=== PATIENT | female | born 1940 | race Caucasian/White ===

== ENCOUNTER 2024-05-22 15:50 | Day surgery (SDC) | payer MEDICARE, OTHER, SELFPAY ==
[2024-05-22 12:05] VITALS: BMI 28.1
[2024-05-22 12:07] VITALS: BP 167/99
[2024-05-22 12:37] LABS: % Basophils 0.9 % (0-2); % Eosinophils 4.1 % (0-6); % Immature Granulocytes 0.3 % (0-0.5); % Lymphocytes 25.4 % (20.5-51.1); % Monocytes 8.3 % (1.7-9.3); Absolute Basophils 0.1 10^3/uL (0-0.2); Absolute Eosinophils 0.3 10^3/uL (0-0.7); Absolute Lymphocytes 1.8 10^3/uL (1.2-3.4); Absolute Monocytes 0.6 10^3/uL (0.1-0.6); Absolute Neutrophils 4.2 10^3/uL (1.4-6.5); Hematocrit 37.9 % (37.0-47.0); Hemoglobin 13.2 g/dL (12.0-16.0); Mean Corp Hgb Conc. 34.8 g/dL (33.0-37.0); Mean Corpuscular Hgb 28.9 pg (27.0-31.0); Mean Corpuscular Volume 82.9 fL (81.0-99.0); Mean Platelet Volume 9.7 fL (7.4-10.4); Nucleated Red Blood Cells % 0 %; Platelet Count 247 10^3/uL (130-400); Red Blood Cell Count 4.57 10^6/uL (4.20-5.40); Red Cell Dist. Width 13.4 % (11.5-14.5); White Blood Cell Count 6.9 10^3/uL (4.8-10.8)
[2024-05-22 12:47] LABS: APTT 28.8 Sec (23.4-35.0)
[2024-05-22 12:51] LABS: ALT (SGPT) 17 U/L (0-35); AST (SGOT) 26 U/L (14-36); Albumin 4.4 g/dl (3.5-5.0); Alkaline Phosphatase 95 U/L (38-126); Blood Urea Nitrogen 18 mg/dl (7-17); Calcium 9.4 mg/dl (8.4-10.2); Carbon Dioxide 26 mmol/L (22-30); Chloride 105 mmol/L (98-107); Estimated Creatinine Clearance 40 ml/min; Glucose 92 mg/dl (70-99); Potassium 4.1 mmol/L (3.5-5.1); Sodium 138 mmol/L (135-145); Total Bilirubin 0.5 mg/dl (0.2-1.3); Total Protein 7.6 g/dl (6.3-8.2); eGFR 56.25
--- NOTE | 2024-05-22 13:02 | ED.GENMED ---
History of Present Illness
General
Chief Complaint: Rectal Bleeding
Source: patient and physician
Time Seen by Provider: 05/22/24 12:11
History of Present Illness
History of Present Illness:
83-year-old female with past medical history of colitis/diverticulitis, hypertension, bronchial cancer presenting to the emergency department for evaluation at the request of her colorectal team for evaluation after patient has been experiencing
bloody stools for the last 8 days, last night into this morning there was more pronounced blood, seen in office this morning and sent to the ER with concern for severe proctitis and to be evaluated with further labs and CT imaging. Patient does
take a daily 81 mg aspirin but no other anticoagulants. She is denying any pain, fevers, nausea, vomiting, change in oral intake or any other concerns. She notes that she previously had surgical intervention with robotic sigmoidectomy due to past
GI related issues.
Past History
Past History
ED Past Medical History: Cancer, HTN, Hypothyroidism and Other (Diverticulitis, colitis)
ED Past Surgical History: Bowel resection, Gynecological, Orthopedic (Left knee surgery, laminectomy) and Other (Lungs tumor removal, umbilical hernia repair November 2017)
Social History
Tobacco: Former smoker
Alcohol: None
Drug: None
Personal:
Living: with family
Employment: Retired
Family History
Family History: Other (Noncontributory)
Review of Systems
Review of Systems
All Other Systems: ROS reviewed and negative except as documented in HPI and ROS
Phy Exam
Physical Exam
Physical Exam:
GENERAL: Alert , in no apparent distress
EYE: clear conjunctiva b/l
HEAD: NCAT
ENT: mmm.
CARDIAC: Regular rate and rhythm .
LUNGS: Clear breath sounds bilaterally, no acute respiratory distress, no wheezes/rales/rhonchi
ABDOMEN: Soft, mild left mid abdominal ttp, no r/g, no cvat
NEUROLOGICAL: Alert and oriented
SKIN: Warm and dry, skin intact.
MUSCULOSKELETAL: well perfused.
PSYCH: Normal and appropriate interaction.
Scores
Heart Failure Risk
Heart Failure Risk Score: Not Applicable
Heart Score for Chest Pain Patients
STEMI patient?: Not applicable
Withdrawal Assessment of Alcohol
Withdrawal Assessment Completed?: Not applicable
Course
Orders/Labs/Results
Orders:
Orders
05/22/24 Lunch
Clear Liquid
05/22/24 12:13
CT Abd/pelvis W Iv Cont Urgent
Comment:
Reason For Exam: lower abd pain, bleeding, hx colitis/divertic
05/22/24 12:23
Type+Screen Urgent
CRP [C-Reactive Protein] Urgent
Complete Blood Count/With Diff Urgent
Comprehensive Metabolic Panel Urgent
ESR [Erythrocyte Sed Rate] Urgent
PTT Urgent
Prothrombin Time Urgent
05/22/24 14:53
Colyte Peg Electrolyte Soln [Nulytely Solution] 4 liters PO ONCE ONE
05/22/24 20:00
H&H Q8H
05/23/24 Breakfast
NPO
Allow oral meds: No
Allow clear liquids: No
05/23/24 12:00
Surgical Procedure As Directed
Surgical Procedure: flexible sigmoidoscopy
Abnormal Lab Results
05/22/24
12:23
ESR 26 H mm/hour
(0-20)
BUN 18 H mg/dl
(7-17)
05/22/24 12:23
Vital Signs
Initial and Last Documented VS:
Initial Vital Signs
Temp Pulse Resp BP Pulse Ox
98.0 F 84 19 167/99 97
05/22/24 12:07 05/22/24 12:07 05/22/24 12:07 05/22/24 12:07 05/22/24 12:07
Last Documented Vital Signs
Temp Pulse Resp BP Pulse Ox
98.0 F 74 16 126/71 97
05/22/24 12:07 05/22/24 14:22 05/22/24 14:22 05/22/24 14:22 05/22/24 14:22
MDM/Problems Addressed
Differential Diagnosis Includes:
Proctitis, colitis, diverticulitis, anemia, infectious diarrhea
MDM/Problems Addressed:
83-year-old female presenting emergency department at the request of colorectal surgery team for evaluation of suspected severe proctitis. Patient with 8 days of bloody stools. She notes no other associated symptoms. Denies any fevers. She is
otherwise well-appearing. Abdomen was mildly tender within the left mid abdomen. Hemodynamically stable. Will check labs and CT at colorectal surgery's request. Disposition pending.
Chronic conditions affecting care: Other (diverticulitis/colitis)
*Radiology
Radiology exam reviewed: radiology read reviewed
*Pulse Oximetry
Patient hypoxic: no
*Critical Care Note
Total Time (30-74mins, 75-104mins- exclusive of procedures): Not Applicable
Data Reviewed
Review of Other/Old Records Reveals: Labs and Records
Source: patient, records and physician
Comment
Comment:
WBC 6.9
Hgb >13
Patient Management
Discussion with other providers: Hospitalist and Service Sprinkler Helper
Escalation/DeEscalation of care consider admission/obs:
Patient CT scan without any acute intra-abdominal findings. I discussed the case with colorectal surgery who is still recommending we bring the patient into the hospital with plans for bowel prep and flexible sigmoidoscopy tomorrow. Recommend
trending H&H. They will continue to see the patient in consultation. Hospitalist team was notified and accepts for continued evaluation and treatment.
ED Attending Note
-
Portions of this chart may have been created with voice recognition software.� Occasional wrong word or��sound alike� substitutions may have occurred due to the inherent limitations of voice recognition software.
Discharge Plan
Departure
Patient Disposition: Admit
Date of Disposition: 05/22/24
Time of Disposition: 14:45
Presentation/result/management discussed w/ accepting MD/DO: Hospitalist
Discharge Problem:
GI bleeding
Prescriptions:
No Action
levothyroxine 25 MCG tablet
25 mcg PO Q48H
enalapril maleate 5 mg Tablet
5 mg PO Q48H
cholecalciferol (vitamin D3) [Vitamin D3] 25 mcg (1,000 unit) Tablet,Chewable
25 mcg PO DAILY
cranberry extract 50 mg Tablet,Chewable
50 mg PO DAILY
Referrals:
Levi Savage MD [Family Provider] -
Interventions
Interventions:
*Risk Screen - Suicide Last Done: 05/22/24 12:07
*General Assessment Last Done: 05/22/24 12:07
*Neglect/Abuse Screening Last Done: 05/22/24 12:07
ED- Fall Risk Assessment Last Done: 05/22/24 12:26
*ED COVID-19 Vaccine History Last Done: 05/22/24 12:16
CT-Nannnp-Vlepygnvzv Assessment Last Done: 05/22/24 12:25
ED- Cardiac Assessment Last Done: 05/22/24 12:25
ED- Pulmonary Assessment Last Done: 05/22/24 12:25
Discharge Date and Time
Print Language: SLOVAK
[2024-05-22 14:09] LABS: Erythrocyte Sed Rate 26 mm/hour (0-20)
[2024-05-22 14:22] VITALS: BP 126/71
--- NOTE | 2024-05-22 14:52 | HPS.HSE ---
Addendum entered and electronically signed by John Menon MD 05/22/24 15:35:
I saw and examined the patient.
The STEREO OPERATOR's note was reviewed and I agree with the note.
Comment:
82 female past medical history of hypertension hypothyroidism, colitis status post tumor resection in 2020 was presented with bright red blood per rectum from colorectal office. Patient denies abdominal pain. Denies nausea or vomiting. Denies any
change in diet. Denies lightheaded and dizziness.
General: Comfortable and Conversant; No Fever or Chills
HEENT: NormoCephalic, Anicteric, Moist mucous membranes, PERRLA, [place] Conjunctivae and No Ptosis
Respiratory: Clear; No Wheezes, Rales or Rhonchi
Cardiac: S1/S2 and Regular Rhythm; No Murmur, Rub, Gallop or Peripheral Edema
GI: Soft, Non Tender, Non Distended, Normal Bowel Sounds and No Hepatosplenomegaly
Musculoskeletal: No Clubbing, No Cyanosis and No Edema
Skin: Warm and Dry; No Rash
Neuro: AO x 3, No Motor Deficits, Nonfocal/grossly intact, Cranial Nerves Intact and No Sensory Deficits; No Slurred Speech, Facial Droop or Tremors
Psych: Calm
A/P
Bright red blood per the rectum likely secondary to lower GI bleed secondary to anal bleeding versus suspected proctitis
Primary potential
Hypothyroidism
History of colitis status post resection
Plan
Diet orders per surgery
Plan for flex sig in the morning
Hemoglobin has been stable
Bowel prep ordered.
DVT prophylaxis SCDs in the setting of bleeding.
Discussed with patient daughter at bedside in detail
I spent a total of 80 minutes with the patient or on the floor. More than 50% of this time involved counseling and coordination of care.
Original Note:
Family Physician
-
Family Physician: Levi Savage MD
Chief Complaint
-
Bloody stools x 8 days
History of Present Illness
83-year-old female complaining of bloody stools with brown formed and some left lower quadrant abdominal pain over the last 8 days with being more pronounced today. She was seen in the office this morning by colorectal and sent to ER for
evaluation. She denies fever, chills, nausea, vomiting, chest pain, palpitations, shortness of breath, cough. She is past medical history of colitis/diverticulitis status post robotic sigmoidectomy, HTN, hypothyroidism, bronchial cancer with
lung tumor removal, former smoker.
Medical History
Past Medical History
Past Medical History: Reports Other
Additional Past Medical History:
Colitis/diverticulitis status post robotic sigmoidectomy
HTN
Hypothyroidism
bronchial cancer with lung tumor removal
former smoker
Past Surgical History: Reports Other
Additional Past Surgical History:
Bowel resection robotic sigmoidectomy due to diverticulitis
Lung tumor removal secondary bronchial cancer
Umbilical hernia repair November 2017
Left knee surgery
Laminectomy
Social History
Tobacco: Former Smoker
Alcohol: None
Drug: None
Personal:
Living: With Family
Employment: Retired
Family History
Family History: Other (Sister history of colitis mother CVA father age 86 from a fall family history of colon cancer)
Allergies / Home Medications
Allergies reflects when Allergies were last updated in [facility] [employer].
Home Medications with original date entered in [facility] [facility] [employer]
Allergy/Medication List:
Allergies
Allergy/AdvReac Type Severity Reaction Status Date / Time
amoxicillin Allergy diarrhea Verified 01/01/22 10:46
morphine Allergy Swelling @ Verified 01/01/22 10:46
IV site
Penicillins Allergy Rash Verified 01/01/22 10:46
Home Medications
levothyroxine 25 mcg tablet 25 mcg PO Q48H Thyroid 07/30/16
cholecalciferol (vitamin D3) 25 mcg (1,000 unit) chewable tablet (Vitamin D3) 25 mcg PO DAILY 05/22/24
cranberry extract 50 mg chewable tablet 50 mg PO DAILY 05/22/24
enalapril maleate 5 mg tablet 5 mg PO Q48H 05/22/24
Review of Systems
-
History Source: Patient
A 12 point ROS was completed and negative except as noted: Yes
Constitutional: Denies Fever or Chills
EENT: Denies Sore Throat or Runny Nose
Respiratory: Denies Cough or Trouble Breathing
Cardiac: Denies Chest Pain or Diaphoresis
Abdomen/GI: Reports Abdominal Pain (llq) and Bloody Stools (bright red); Denies Nausea, Vomiting or Diarrhea
: Denies Dysuria, Frequency, Flank Pain, Incontinence, Difficulty Voiding or Urgency
Musculoskeletal: Denies Joint Pain, Joint Swelling or Edema
Skin: Denies Itching or Rash
Neurological: Denies Dizzy or Headache
Endocrine: Reports No Symptoms
Hematologic/Lymphatic: Reports No Symptoms
Psych: Reports Calm
Physical Exam
Vital Signs
Vital Signs
Temp Pulse Resp BP Pulse Ox
98.0 F 74 16 126/71 97
05/22/24 12:07 05/22/24 14:22 05/22/24 14:22 05/22/24 14:22 05/22/24 14:22
Physical Exam
General: Comfortable and Conversant; No Fever or Chills
HEENT: NormoCephalic, Anicteric, Moist mucous membranes, PERRLA, [place] Conjunctivae and No Ptosis
Respiratory: Clear; No Wheezes, Rales or Rhonchi
Cardiac: S1/S2 and Regular Rhythm; No Murmur, Rub, Gallop or Peripheral Edema
Breast: Deferred by me
GI: Soft, Non Tender, Non Distended, Normal Bowel Sounds and No Hepatosplenomegaly
Rectal: Deferred by Provider
Genito-urinary: Deferred by me
Musculoskeletal: No Clubbing, No Cyanosis and No Edema
Skin: Warm and Dry; No Rash
Neuro: AO x 3, No Motor Deficits, Nonfocal/grossly intact, Cranial Nerves Intact and No Sensory Deficits; No Slurred Speech, Facial Droop or Tremors
Psych: Calm
Laboratory Results
-
05/22/24 12:23
05/22/24 12:23
Laboratory Results
PT 14.0 Sec (11.4-14.6) 05/22/24 12:
INR 1.10 05/22/24 12:23
APTT 28.8 Sec (23.4-35.0) 05/22/24 12:23
Total Bilirubin 0.5 mg/dl (0.2-1.3) 05/22/24 12:23
AST 26 U/L (14-36) 05/22/24 12:23
ALT 17 U/L (0-35) 05/22/24 12:23
Alkaline Phosphatase 95 U/L (38-126) 05/22/24 12:23
Impression/Plan
-
Impression/plan:
Observation MedSurg
#Acute proctitis with bloody stools
Hgb stable 13.2
-Clear liquids then n.p.o. after midnight
-IV NSS
-Bowel prep this evening go milad
-For flex sig tomorrow by Dr. Nation
consult colo rectal
CT abdomen pelvis with IV contrast: No evidence for acute process in the abdomen or pelvis. Colonic diverticulosis. Rectosigmoid anastomosis
#Hx colitis/diverticulitis
#History status post sigmoidectomy Dr. Nation
#HTN�benign
BP 126/71
Continue enalapril 5 mg every 48 H
#Hypothyroidism
Continue levothyroxine 25 mcg every 48 H
#Bronchial cancer with lung tumor removal
Former smoker
DVT prophylaxis
SCDs
Full code
--- NOTE | 2024-05-22 14:55 | CON.CRS ---
Consultation
-
Date/Time Consultation Requested: 05/22/2024, 14:30
Date/Time Consultation Performed: 05/22/2024, 15:04
Requesting Provider: Kyaw Randhawa PA-C
Performing Provider: Billy Sarabia MD
Reason for Consultation: rectal bleeding
Medical History
-
Chief Complaint: rectal bleeding
History of Present Illness:
83-year-old female, known patient of Dr. Nation's status post a robotic sigmoid resection for diverticulitis on January 01, 2022.� The patient surgery went well and her last appointment with Dr. Nation was on 01/18/2022 and at that time had no issues.
Bloody diarrhea in September 2019 she was admitted with a CT scan consistent with ischemic colitis in the distribution of the inferior mesenteric artery.� In February 2018 a CAT scan revealed severe colitis involving descending and sigmoid colon.� A
follow-up MRI in October 2021 reveals patent mesenteric arteries.
Her last colonoscopy was in 2017 which showed diverticulosis in the sigmoid colon.� She is due in 2027.
Currently the patient states that she has had severe rectal bleeding that started about 8 days ago.� It is bright red in nature and occurs mostly with bowel movements.� She denies pain.� She denies prolapsing tissue.� She denies any leakage.� She
has tried Preparation H but it has not helped.� She has also tried Tucks pads.� Typical her bowel movements are normal but more lately have been incomplete in nature and she goes about 3-4 times a day.� She denies a family history of rectal or colon
cancer.� She is not any blood thinners.
Past Medical History
Past Medical History: HTN, Hypothyroidism and Other (h/o colitis, h/o diverticulitis)
Past Surgical History: Other (Left total knee DOS 10/2016 , Bunionectomy , Thyroidectomy , carciniod tumor removal , lumbar lami, spinal stenosis , ear surgery x7 , tubal ligation , 12/07/2017 umbilical hernia repair , R shoulder replacement
09/01/2021, Robotic Sigmoid Resection 12/2021, excision of back cyst (lambour) 10/2023, RKA)
Social History
Tobacco: Former Smoker
Alcohol: None
Personal:
Family History
Family History: Reviewed & Not Pertinent
Allergies / Home Medications
Allergy/AdvReac Type Severity Reaction Status Date / Time
amoxicillin Allergy diarrhea Verified 01/01/22 10:46
morphine Allergy Swelling @ Verified 01/01/22 10:46
IV site
Penicillins Allergy Rash Verified 01/01/22 10:46
�Medication �Instructions �Recorded �Confirmed �Type
levothyroxine 25 mcg tablet 25 mcg PO Q48H Thyroid 07/30/16 05/22/24 History
cholecalciferol (vitamin D3) 25 25 mcg PO DAILY 05/22/24 05/22/24 History
mcg (1,000 unit) chewable tablet
(Vitamin D3)
cranberry extract 50 mg chewable 50 mg PO DAILY 05/22/24 05/22/24 History
tablet
enalapril maleate 5 mg tablet 5 mg PO Q48H 05/22/24 05/22/24 History
Review of Systems
-
History Source: Patient
Abdomen/GI: Bloody Stools
: Bleeding
A 10 point review of systems was completed, and was negative except as per HPI.
Physical Exam
Vital Signs
Temp 98.0 F 05/22/24 12:07
Pulse 74 05/22/24 14:22
Resp Rate 16 05/22/24 14:22
Blood pressure 126/71 05/22/24 14:22
SaO2 97 05/22/24 14:22
05/21/24 05/22/24 05/23/24
06:59 06:59 06:59
Actual Weight 69.5 kg
Body Mass Index (BMI) 28.1
Lab Results / Allergies
05/22/24 12:23
WBC 6.9 10^3/uL (4.8-10.8) 05/22/24 12:23
Hgb 13.2 g/dL (12.0-16.0) 05/22/24 12:23
Hct 37.9 % (37.0-47.0) 05/22/24 12:23
Plt Count 247 10^3/uL (130-400) 05/22/24 12:23
Abs Immat Gran (auto) 0.0 10^3/uL (0-0.05) 05/22/24 12:23
Neutrophils % 61.0 % (42.2-75.2) 05/22/24 12:23
Allergy/AdvReac Type Severity Reaction Status Date / Time
amoxicillin Allergy diarrhea Verified 01/01/22 10:46
morphine Allergy Swelling @ Verified 01/01/22 10:46
IV site
Penicillins Allergy Rash Verified 01/01/22 10:46
Physical Exam
General: Well Developed, Well Nourished and No Apparent Distress
GI: Soft, Non Tender and Non Distended
Rectal: Other (A lubricated regular anoscope was gently inserted into the anus and the obturator was removed. The anus and distal rectum were examined. This procedure was repeated to examine all four quadrants of the anus and distal rectum. Severe
proctitis noted with moderate anterior anal bleeding noted.)
Neuro: AO x 3
Data Reviewed
-
CT Scan: Image Personally Visualized and interpreted, Report Reviewed by me and Discussed with Patient
Labs: Labs Reviewed by me, Discussed with Physician and Discussed with Patient
Old Records: Reviewed
Assessment / Plan
-
Assessment: 83yo female with anal bleeding noted on anoscopy exam in the office, Hgb [address] A/P negative for acute process
Plan:
-Will plan for flexible sigmoidoscopy tomorrow afternoon with Dr. Sarabia. She has been added to the schedule.
-Clears now, NPO at midnight.
-Bowel prep this afternoon.
-IVFs when NPO.
-Discussed above with patient and who are in agreement.
[2024-05-22 16:00] VITALS: BP 121/85
[2024-05-22 18:15] VITALS: BMI 27.2
[2024-05-22 18:56] VITALS: BP 136/76
[2024-05-22] MEDS: NULYTELY SOLUTION 4 LITERS PO (19:29)
[2024-05-22 20:13] LABS: Hematocrit 40.1 % (37.0-47.0); Hemoglobin 13.9 g/dL (12.0-16.0)
--- NOTE | 2024-05-22 20:40 | PTCARENOTE ---
pt noted to be tremoring, b/l arms and hands. Pt states she does have anxiety at times and takes 0.25 mg of xanax occasionally. HORIZONTAL RESAW OPERATOR made aware as well as colorectal. Orders in for one time dose of 0.25 mg xanax, med given.
[2024-05-22] MEDS: XANAX 0.25 MG PO (21:34)
--- NOTE | 2024-05-22 22:42 | PTCARENOTE ---
pt drank about half of the prep and started vomiting. Dr. Nation made aware and instructed pt to stop prep now, and will give enemas tomorrow.
[2024-05-22 23:17] VITALS: BP 146/94
[2024-05-23 07:35] VITALS: BP 102/70
[2024-05-23 09:01] LABS: % Basophils 0.8 % (0-2); % Eosinophils 5.3 % (0-6); % Immature Granulocytes 0.3 % (0-0.5); % Lymphocytes 22.3 % (20.5-51.1); % Monocytes 8.1 % (1.7-9.3); % Neutrophils 63.2 % (42.2-75.2); Absolute Basophils 0.1 10^3/uL (0-0.2); Absolute Eosinophils 0.3 10^3/uL (0-0.7); Absolute Lymphocytes 1.4 10^3/uL (1.2-3.4); Absolute Monocytes 0.5 10^3/uL (0.1-0.6); Absolute Neutrophils 4.1 10^3/uL (1.4-6.5); Hemoglobin 13.1 g/dL (12.0-16.0); Mean Corp Hgb Conc. 34.5 g/dL (33.0-37.0); Mean Corpuscular Hgb 28.7 pg (27.0-31.0); Mean Corpuscular Volume 83.2 fL (81.0-99.0); Mean Platelet Volume 9.8 fL (7.4-10.4); Nucleated Red Blood Cells % 0 %; Platelet Count 231 10^3/uL (130-400); Red Blood Cell Count 4.57 10^6/uL (4.20-5.40); Red Cell Dist. Width 13.4 % (11.5-14.5); White Blood Cell Count 6.4 10^3/uL (4.8-10.8)
[2024-05-23 10:39] LABS: Blood Urea Nitrogen 15 mg/dl (7-17); Calcium 9.2 mg/dl (8.4-10.2); Carbon Dioxide 22 mmol/L (22-30); Chloride 106 mmol/L (98-107); Estimated Creatinine Clearance 49 ml/min; Glucose 96 mg/dl (70-99); Potassium 4.3 mmol/L (3.5-5.1); Sodium 137 mmol/L (135-145); eGFR > 60.00
--- NOTE | 2024-05-23 11:33 | W.PN.HOSP.TC ---
Today's Communication/Plan
-
CRS recs
Assessment / Plan
Assessment / Plan
#Bright red blood per the rectum likely secondary to lower GI bleed secondary to anal bleeding versus suspected proctitis
#Hx colitis/diverticulitis
#History status post sigmoidectomy Dr. Nation
CT abdomen pelvis with IV contrast: No evidence for acute process in the abdomen or pelvis. Colonic diverticulosis. Rectosigmoid anastomosis
Hemoglobin remained stable.
Finish half the prep. May require enema.
Colonoscopy vs. flex sig based on prep
Will defer to colorectal surgery
#HTN�benign
Continue enalapril 5 mg every 48 H
#Hypothyroidism
Continue levothyroxine 25 mcg every 48 H
#Bronchial cancer with lung tumor removal
Former smoker
DVT prophylaxis
SCDs
Full code
Anticipated Discharge: Within 24 hours
Subjective/Interval History
-
Date of Service: May 23, 2024
States of severe nausea and vomiting with a GoLytely prep
Finished half the prep
Objective Data
-
Labs:
Laboratory Results
05/23/24
08:06
WBC 6.4
Hgb 13.1
Hct 38.0
Plt Count 231
Sodium 137
Potassium 4.3
Chloride 106
Carbon Dioxide 22
BUN 15
Creatinine 0.8
Glucose 96
Calcium 9.2
Vital Signs:
Vital Signs
Temp Pulse Resp BP Pulse Ox
98.1 F 68 17 102/70 94
05/23/24 07:35 05/23/24 07:35 05/23/24 07:35 05/23/24 07:35 05/23/24 07:35
I&O
05/22/24 05/23/24 05/24/24
06:59 06:59 06:59
Intake Total 120 / 120
Balance 120 / 120
--- NOTE | 2024-05-23 11:37 | CM ---
senior clinical study manager reviewed patient's chart and met with patient and patient was admitted under OBS, MICHEL letter provided to patient at 11am, patient lives with her spouse in a 1 story home with 5 steps to enter, patient is independent with adl's and
ambulation, no dme.
Pharmacy; [facility]
PCP: Dr. Savage
Plan; Home when stable, no needs.
[2024-05-23 14:05] VITALS: BP 108/66
--- NOTE | 2024-05-23 14:08 | W.PN.UPDATE ---
Update Note
Progress Note Update
Flexible sigmoidoscopy complete. Suboptimal prep. Distal 1/3rd of rectum with severe proctitis and ulceration. Likely was source of blood. Will resume diet. GI consult for recommendations.
[2024-05-23 14:09] VITALS: BP 108/66; BP_SYST 18
[2024-05-23 14:15] VITALS: BP 108/66
--- NOTE | 2024-05-23 15:29 | CON.GI ---
Medical History
Chief Complaint / HPI
Chief Complaint: Rectal bleeding
History of Present Illness:
Patient is a 83-year-old female with past medical history of diverticulitis s/probotic sigmoidectomy who presented with anorectal bleeding and left lower quadrant abdominal pain. She was noted to have anal bleeding on anoscopy exam in the
colorectal team office. She denies any recent fever, chills, nausea, vomiting. She mentions an urgency to go the bathroom and crampy abdominal pain but does not give a history of diarrhea.
She has a history bronchial carcinoid tumor (1998); tumor was resected at that time and she has been asymptomatic since.
Past Medical History
Past Medical History: Cancer, HTN, Hypothyroidism and Other (arthritis, sigmoid diverticulitis)
Past Surgical History: Bowel Resection (resection of sigmoid + mid to proximal rectum (2021)) and Orthopedic ((Left knee surgery, laminectomy)
Social History
Tobacco: Former Smoker
Alcohol: None
Drug: None
Personal:
Living: With Family
Employment: Retired
Family History
Family History: Other (Patient suspects a history of U/C in sister but is unsure)
Allergies / Home Medications
Allergy/AdvReac Type Severity Reaction Status Date / Time
amoxicillin Allergy diarrhea Verified 01/01/22 10:46
morphine Allergy Swelling @ Verified 01/01/22 10:46
IV site
Penicillins Allergy Rash Verified 01/01/22 10:46
�Medication �Instructions �Recorded
levothyroxine 25 mcg tablet 25 mcg PO Q48H Thyroid 07/30/16
alprazolam 0.25 mg tablet (Xanax) 0.25 mg PO HS PRN anxiety 05/22/24
cholecalciferol (vitamin D3) 25 25 mcg PO DAILY Supplement 05/22/24
mcg (1,000 unit) chewable tablet
(Vitamin D3)
cranberry extract 50 mg chewable 50 mg PO DAILY Supplement 05/22/24
tablet
enalapril maleate 5 mg tablet 5 mg PO Q48H Blood Pressure 05/22/24
Review of Systems
-
History Source: Patient
All other systems: A 12 pt ROS was Negative except as stated above in HPI
Vital Signs
Temp Pulse Resp BP Pulse Ox
97.6 F 75 19 108/66 98
05/23/24 14:09 05/23/24 14:15 05/23/24 14:15 05/23/24 14:15 05/23/24 14:09
Physical Exam
Exam
General: Well Developed and No Apparent Distress
HEENT: Moist Mucous Membranes
Respiratory: Clear
Cardiac: S1/S2 and Regular Rhythm
GI: Soft, Non Distended and Tender (mild LLQ tenderness)
Skin: Warm and Dry
Neuro: Awake, Alert, Oriented and AO x 3
Psych: Calm
Results
WBC 6.4 10^3/uL (4.8-10.8) 05/23/24 08:06
Hgb 13.1 g/dL (12.0-16.0) 05/23/24 08:06
Hct 38.0 % (37.0-47.0) 05/23/24 08:06
MCV 83.2 fL (81.0-99.0) 05/23/24 08:06
Plt Count 231 10^3/uL (130-400) 05/23/24 08:06
Absolute Neuts (auto) 4.1 10^3/uL (1.4-6.5) 05/23/24 08:06
PT 14.0 Sec (11.4-14.6) 05/22/24 12:23
INR 1.10 05/22/24 12:23
APTT 28.8 Sec (23.4-35.0) 05/22/24 12:23
Sodium 137 mmol/L (135-145) 05/23/24 08:06
Potassium 4.3 mmol/L (3.5-5.1) 05/23/24 08:06
Chloride 106 mmol/L (98-107) 05/23/24 08:06
Carbon Dioxide 22 mmol/L (22-30) 05/23/24 08:06
BUN 15 mg/dl (7-17) 05/23/24 08:06
Creatinine 0.8 mg/dL (0.6-1.0) 05/23/24 08:06
Calcium 9.2 mg/dl (8.4-10.2) 05/23/24 08:06
Total Bilirubin 0.5 mg/dl (0.2-1.3) 05/22/24 12:23
AST 26 U/L (14-36) 05/22/24 12:23
ALT 17 U/L (0-35) 05/22/24 12:23
Alkaline Phosphatase 95 U/L (38-126) 05/22/24 12:23
Diagnostic Image Results (05/22/24):
CT evidence for an acute process in the abdomen or pelvis. Colonic diverticulosis. Rectosigmoid anastomosis.
Prior GI Procedures:
EGD (06/30/18) :
Gastric antral mucosa with marked chronic inactive gastritis, positive for H. pylori
Colonoscopy (01/04/22) :
Colon, sigmoid, resection:
-Segment of colon with diverticulitis and adhesions.
-Two benign lymph nodes.
Rectum, excision:
-Segment of rectum with diverticulitis and adhesions
Assessment / Plan
-
Patient is a 83-year-old female with past medical history of diverticulitis s/p robotic sigmoidectomy who presented with anorectal bleeding from 8 days ago. Patient went into OR today for flexible sigmoidoscopy. Distal 1/3rd of rectum with severe
proctitis and ulceration. Biopsies taken.
# proctitis: ischemic vs infectious vs inflammatory
Plan:
- Stool tests
- Inflammatory markers
- Regular diet
- Continue to monitor h/h
- Await path results for definite diagnosis
- Appreciate colorectal team
-
-
Thank you for consultation and allowing me to participate in the patient's care. 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
[2024-05-23 15:49] VITALS: BP 138/82
[2024-05-23 23:48] VITALS: BP 131/69
[2024-05-24 08:11] VITALS: BP 124/91
--- NOTE | 2024-05-24 09:05 | W.PN.CRS1 ---
Today's Communication / Plan
-
no surgery indicated
GI work up
will s/o, please contact if further issues arise
Assessment/Plan
-
Assessment: Distal 1/3rd of rectum with severe proctitis and ulceration
Plan:
- No surgery indicated at this time
- Appreciate GI consultation: miralax and fiber started, awaiting pathology, stool studies/inflammatory markers
- Dispo per primary service
- Will sign off, please contact us if further issues arise
Subjective Data
Procedure
05/23- flexible sigmoidoscopy with Dr. Sarabia
Subjective Data
Date of Service: May 24, 2024
Patient states her bleeding has completely stopped. She had a non bloody bowel movement. She has no other complaints.
Objective Data
-
Vital Signs
Temp Pulse Resp BP Pulse Ox
98.3 F 92 18 131/69 97
05/23/24 23:48 05/23/24 23:48 05/23/24 23:48 05/23/24 23:48 05/23/24 23:48
Intake & Output
05/23/24 05/24/24 05/25/24
06:59 06:59 06:59
Intake Total 120 / 120 540 / 540
Balance 120 / 120 540 / 540
Intake:
Oral fluids 120 / 120 540 / 540
Other:
Number of approximated SMALL 4
amounts of urine
Number of approximated MODERATE 3
amounts of urine
How many times incontinent 2
MODERATE amount urine
Lab Results
05/23/24 08:06
05/23/24 08:06
Physical Exam
-
General: No Acute Distress and AOx3
Abdomen: Soft, Non Distended and Non Tender
Skin: Warm and Dry
[2024-05-24] MEDS: VASOTEC 5 MG PO (09:58)
[2024-05-24] MEDS: MIRALAX 17 GRAMS PO (09:58)
[2024-05-24] MEDS: FIBERCON 625 MG PO (10:03)
--- NOTE | 2024-05-24 10:32 | W.PN.GI.CBS2 ---
Today's Communication / Plan
-
Start Rowasa enemas, okay for d/c. Outpatient f/u with GI.
Assessment / Plan
-
Ella is a pleasant 83-year-old female with past medical history of recurrent sigmoid diverticulitis status post sigmoidectomy with Dr. Nation in 2021 who was admitted to the hospital following a flex sig on 05/23 demonstrating proctitis and rectal
ulcer, admitted following procedure for GI consultation.
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
-ESR 26
-BUN normalized
-infectious stool studies neg; fecal calprotectin pending
-recal bx returned with chronically moderately active proctitis
-recommend starting rowasa enemas and reassessing response to therapy
-will arrange for patient to follow-up in GI office following discharge
-GI will sign off, okay for d/c today from a GI perspective
Subjective
Subjective
Date of Service: May 24, 2024
Patient seen in follow-up, no overnight events. No episodes of bleeding. She feels well enough to go home today.
Objective
Data Reviewed
Laboratory Data:
Laboratory Results
05/23/24 08:06
05/23/24 08:06
Laboratory Results
PT 14.0 Sec (11.4-14.6) 05/22/24 12:23
INR 1.10 05/22/24 12:23
APTT 28.8 Sec (23.4-35.0) 05/22/24 12:23
Total Bilirubin 0.5 mg/dl (0.2-1.3) 05/22/24 12:23
AST 26 U/L (14-36) 05/22/24 12:23
ALT 17 U/L (0-35) 05/22/24 12:23
Alkaline Phosphatase 95 U/L (38-126) 05/22/24 12:23
Vital Signs and I&O:
Vital Signs
Temp Pulse Resp BP Pulse Ox
98.3 F 72 18 124/91 95
05/24/24 08:11 05/24/24 08:11 05/24/24 08:11 05/24/24 08:11 05/24/24 08:11
I&O
05/23/24 05/24/24 05/25/24
06:59 06:59 06:59
Intake Total 120 / 120 540 / 540
Balance 120 / 120 540 / 540
Physical Exam
Physical Exam
HEENT: Anicteric and Moist mucous membranes
GI: Soft, Non Distended, Non Tender and Normal Bowel Sounds
--- NOTE | 2024-05-24 11:36 | W.PN.HOSP.TC ---
Addendum entered and electronically signed by John Menon MD 05/24/24 13:29:
Discussed case with gastroenterology. Patient to be discharged home with mesalamine enema. Outpatient GI follow-up.
More than 30 minutes spent in discharge including
Final examination of the patient
Summarizing hospital stay
Instructions for continuing care to all relevant caregivers
Preparation of discharge records, prescriptions, and referral forms
Total time spent (in minutes): 58
Original Note:
Today's Communication/Plan
-
Dispo possibly home later today pending GI recs
Assessment / Plan
Assessment / Plan
#Bright red blood per the rectum likely secondary to lower GI bleed secondary to anal bleeding versus suspected proctitis
#Hx colitis/diverticulitis
#History status post sigmoidectomy Dr. Nation
CT abdomen pelvis with IV contrast: No evidence for acute process in the abdomen or pelvis. Colonic diverticulosis. Rectosigmoid anastomosis
Hemoglobin remained stable.
Finish half the prep. May require enema.
Status post flex sig with suboptimal prep. Distal one third affected with severe proctitis and ulceration. Likely the source of bleeding.
Rectum biopsy results with chronic moderately active proctitis. Negative for granulomas and dysplasia.
Tolerating diet and no abdominal pain.
GI consulted will await further recs
#HTN�benign
Continue enalapril 5 mg every 48 H
#Hypothyroidism
Continue levothyroxine 25 mcg every 48 H
#Bronchial cancer with lung tumor removal
Former smoker
DVT prophylaxis
SCDs
Full code
Dispo possibly home later today pending GI recs
Anticipated Discharge: Today
Subjective/Interval History
-
Date of Service: May 24, 2024
Denies abd pain or nause or vomiting
Objective Data
-
Vital Signs:
Vital Signs
Temp Pulse Resp BP Pulse Ox
98.3 F 72 18 124/91 95
05/24/24 08:11 05/24/24 08:11 05/24/24 08:11 05/24/24 08:11 05/24/24 08:11
I&O
05/23/24 05/24/24 05/25/24
06:59 06:59 06:59
Intake Total 120 / 120 540 / 540
Balance 120 / 120 540 / 540
Physical Exam
-
General: Well Developed and No Apparent Distress
HEENT: Normocephalic, Atraumatic and Moist Mucous Membranes
Respiratory: Clear to Auscultation
Cardiac: Regular Rhythm and S1/S2; Negative Murmur, Rub or Gallop
GI: Soft, Nontender, Nondistended and Normal Bowel Sounds; Negative Organomegaly
Rectal: Deferred by Provider
Musculoskeletal: No Clubbing, No Cyanosis and No Edema
Skin: Negative Rash
Neuro: Awake, AO x 3 and Nonfocal/Grossly Intact
Psych: Calm
--- NOTE | 2024-05-24 12:07 | W.PN.UPDATE ---
Update Note
Progress Note Update
path with ulcerative proctitis reviewed with patient will send rowasa enema to pharmacy. Educated on disease process and medication. Given contact info for return for follow up.
--- NOTE | 2024-05-24 13:11 | W.DCSUMMARY ---
Discharge Summary
Discharge Data
Date of Admission: 05/22/24
Date of Discharge: 05/24/24
-
Pending Results: No
Hospital Course
83 female past medical history of diverticulitis/colitis status post sigmoidectomy who was presented from surgery office with bright red blood per the rectum. Underwent CT abdomen pelvis with IV contrast which showed no evidence of active process
in the abdomen or pelvis. Colonic diverticulosis. Rectosigmoid anastomosis. Patient underwent flex sig by Dr. Sarabia which showed suboptimal prep. Distal one third affected with severe proctitis and ulceration. Likely the source of bleeding.
Rectum biopsy results with chronic moderately active proctitis. Negative for granulomas and dysplasia. GI recommended patient to be started on mesalamine enema Rx was sent by GI team to the pharmacy nightly. Patient understands to follow-up
outpatient with gastroenterology. Patient was tolerating diet. Hemoglobin remained stable. Patient be discharged home.
Discharge Plan
-
Patient Disposition: Home (Routine Discharge)
Discharge Diagnosis/Procedures: Ulcerative proctitis
Condition: Fair
Diet: As tolerated and Regular
Activity: As tolerated
Driving Restrictions: As prior to admission
Referrals:
Billy Sarabia MD [Active] -
Levi Savage MD [Family Provider] - in less than 1 week
Sheila Gonzalez DO [Active] - None (call to schedule follow up for new ulcerative proctitis )
Prescriptions:
New
mesalamine [Rowasa] 4 gram/60 mL enema
4 g KS HS Qty: 1680 0RF
Continued
levothyroxine 25 MCG tablet
25 mcg PO Q48H
enalapril maleate 5 mg Tablet
5 mg PO Q48H
cholecalciferol (vitamin D3) [Vitamin D3] 25 mcg (1,000 unit) Tablet,Chewable
25 mcg PO DAILY
cranberry extract 50 mg Tablet,Chewable
50 mg PO DAILY
alprazolam [Xanax] 0.25 mg Tablet
0.25 mg PO HS PRN (Reason: anxiety)
Discharge Orders:
Discharge Patient (As Directed); Ordered 05/24/24
Ordered By: John Menon
Discharge Date and Time
Print Language: THAI
--- NOTE | 2024-05-24 14:45 | CM ---
Met with patient and spouse at bedside
Plan: discharge to home today; no services needed; will provide transport home
[2024-05-24 15:11] VITALS: BP 121/74
== END 2024-05-24 15:30 | disposition home or self-care (01) ==
LOC: PACU 15:50
PROVIDERS: Clinical Nurse Specialist Family Health; Nurse Practitioner Adult Health; Physician Assistant; Physician Assistant Medical; ATTENDING PHYSICIAN Hospitalist; CONSULT PHYSICIAN Internal Medicine; EMERGENCY PHYSICIAN Emergency Medicine; FAMILY PHYSICIAN Family Medicine
DX: K62.89 Other specified diseases of anus and rectum (principal); K62.5 Hemorrhage of anus and rectum
CPT/HCPCS: 45331; 88305; 74177; 80048; 80053; 83993; 85014; 85018; 85025; 85610; 85652; 85730; 86140; 86850; 86900; 86901; 87045; 87046; 87324; 87328; 87329; 87427; 87449; 89055; 99285; Q9967

== ENCOUNTER → 2024-08-20 06:36 | Day surgery (SDC) | payer MEDICARE, OTHER, SELFPAY | LOC: GI 06:36 | PROVIDERS: ATTENDING PHYSICIAN Internal Medicine; FAMILY PHYSICIAN Family Medicine | DX: K51.211 Ulcerative (chronic) proctitis with rectal bleeding (principal); D12.4 Benign neoplasm of descending colon; K55.20 Angiodysplasia of colon without hemorrhage; K63.89 Other specified diseases of intestine; D12.8 Benign neoplasm of rectum; K64.8 Other hemorrhoids | CPT/HCPCS: 45380; 88305 ==

== ENCOUNTER → 2024-12-04 08:09 | Outpatient (REF) | payer MEDICARE, OTHER, SELFPAY | LOC: HWRAD 08:09 | PROVIDERS: ATTENDING PHYSICIAN Physician Assistant Surgical; FAMILY PHYSICIAN Family Medicine | DX: M25.512 Pain in left shoulder (principal) | CPT/HCPCS: 73200 ==

== ENCOUNTER 2024-12-25 06:01 | Inpatient (IN) | payer MEDICARE, OTHER, SELFPAY ==
[2024-12-06 10:54] LABS: Hematocrit 36.9 % (37.0-47.0); Hemoglobin 12.2 g/dL (12.0-16.0); Mean Corp Hgb Conc. 33.1 g/dL (33.0-37.0); Mean Corpuscular Hgb 29.3 pg (27.0-31.0); Mean Corpuscular Volume 88.5 fL (81.0-99.0); Platelet Count 209 10^3/uL (130-400); Red Blood Cell Count 4.17 10^6/uL (4.20-5.40); Red Cell Dist. Width 13.7 % (11.5-14.5)
[2024-12-06 11:09] LABS: Glycohemoglobin (HgbA1c) 5.9 % (4.0-5.6)
[2024-12-06 11:33] LABS: ALT (SGPT) 18 U/L (0-35); AST (SGOT) 21 U/L (14-36); Albumin 4.2 g/dl (3.5-5.0); Alkaline Phosphatase 77 U/L (38-126); Blood Urea Nitrogen 19 mg/dl (7-17); Calcium 9.2 mg/dl (8.4-10.2); Carbon Dioxide 28 mmol/L (22-30); Chloride 101 mmol/L (98-107); Glucose 108 mg/dl (70-99); Potassium 4.3 mmol/L (3.5-5.1); Sodium 138 mmol/L (135-145); Total Bilirubin 0.6 mg/dl (0.2-1.3); Total Protein 7.1 g/dl (6.3-8.2); eGFR > 60.00
[2024-12-06 14:06] VITALS: BMI 26.7
[2024-12-06 15:35] VITALS: BMI 26.7
--- NOTE | 2024-12-07 15:21 | PTCARENOTE ---
Abnormal EKG on 12/06/24. Dr. Mccormick aware. Dr. Mccormick ordered a cardiac clearance prior to surgery.
[2024-12-25] VITALS (16 sets, daily range): BP systolic 108–147; BP diastolic 65–96; PULSE 69; O2SAT 97; BMI 26.7
[2024-12-25] MEDS: CELEBREX 200 MG PO (06:32)
[2024-12-25] MEDS: TYLENOL 1000 MG PO (06:32)
[2024-12-25] MEDS: NORMOSOL-R/PLASMALYTE-A 1000 IV ×2 (06:45→13:57)
[2024-12-25] MEDS: EMEND 40 MG PO (07:01)
--- NOTE | 2024-12-25 11:15 | PTCARENOTE ---
Received patient from PACU around 1105 via bed in stable condition. Denies pain. Dressing to left shoulder CDI. Sling to LUE in place. +sensation +pulses LUE. Patient oriented to room. Call hernadez in reach.
[2024-12-25] MEDS: XANAX PO (11:59)
[2024-12-25 12:09] LABS: Glucose - Point of Care 117 mg/dl (70-99)
[2024-12-25] MEDS: ANCEF 5 IV ×2 (16:20→23:51)
[2024-12-25] MEDS: ASPIRIN 325 MG PO (17:30)
[2024-12-25 18:12] LABS: Glucose - Point of Care 185 mg/dl (70-99)
[2024-12-25] MEDS: XANAX 0.25 MG PO (20:01)
[2024-12-25] MEDS: NEURONTIN 300 MG PO (22:03)
[2024-12-25] MEDS: PEPCID 20 MG PO (22:03)
[2024-12-25] MEDS: BACTROBAN 2% OINTMENT 1 APPLIC NASAL (22:03)
[2024-12-26 03:15] VITALS: BP 125/77
[2024-12-26 07:15] VITALS: BP 125/74
[2024-12-26] MEDS: MOBIC 15 MG PO (08:43)
[2024-12-26] MEDS: ASPIRIN 325 MG PO (08:44)
[2024-12-26] MEDS: XANAX PO ×2 (08:44→10:10)
[2024-12-26] MEDS: BACTROBAN 2% OINTMENT 1 APPLIC NASAL (08:45)
--- NOTE | 2024-12-26 08:57 | W.PN.ORTHO ---
Today's Communication / Plan
-
D/c today since clinically stable, did well w/ OT.
Assessment
.
Distal Motor Intact: Yes
Dressing:
Clean, dry and intact.
Assessment:
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
- s/p R Reverse TSA, 08/2021, by Dr Masters and L TKA, 2016, by Dr Jeffery
DVT prophylaxis - ASA, b/l venous foot pumps
HTN - + parameters - BPs overall stable
Chronic kidney disease stage 3 per records - Meloxicam ONLY for breakthrough pain as needed
NIDDM with neuropathy, diet controlled, A1c 5.9 - BS readings overall stable
- Continue diabetic, carb controlled diet
- Gabapentin offered for neuropathy but kindly declined
GERD - continue Pepcid HS
HLD
Bifascicular block
History of H pylori
Ischemic colitis 09/2019
Colon polyps
Recurrent diverticulitis, status post sigmoidectomy 2021
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
Irritable bowel syndrome
Cholelithiasis, asymptomatic
Hemorrhoids
Balance difficulties
Lumbar degenerative disc disease.
Bronchial carcinoma, 1998, status post excision
Thyroid nodule, status post left partial thyroidectomy
Post-surgical hypothyroidism
Tinea pedis, on Ketoconazole
Osteopenia
Anxiety
Hearing impairment bilaterally
MRSA positive nasal swab 08/19/2021; 2 negative screens since diagnosis
History of remote tobacco abuse
Plan
.
Surgery / Date: L Reverse TSA w/ Dr Masters 12/25/24
DVT Prophylaxis: Aspirin
Activity:
Out of bed.
PT/OT
Discharge Plan: Home
Subjective
.
.:
Patient resting comfortably in her chair.
L shoulder pain tolerable w/ minimal pain meds.
Denies any new significant complaints.
Eager for potential d/c today.
Vital Signs and Labs
.
Vital Signs and Labs:
Lab Results
12/06/24 09:54
12/06/24 09:54
Temp Pulse Resp BP Pulse Ox
97.4 F 69 16 125/74 96
12/26/24 07:15 12/26/24 07:15 12/26/24 07:15 12/26/24 07:15 12/26/24 07:15
Non-invasive Hgb result: 11.4
Physical Exam
-
HEENT: No pallor, cyanosis, or jaundice. Throat clear.
NECK: Supple. No JVD.
RESPIRATORY: Lungs clear to auscultation.
CVS: S1, S2 normal. RRR.�
ABDOMEN: Soft, non-tender. No distension.
EXTREMITIES: + LUE sling. 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 Able to wiggle fingers b/l. Strength equal, no calf pain with palpation/dorsiflexion. Calves soft.
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 No focal deficits. 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
[2024-12-26 09:03] VITALS: BP 114/76; PULSE 68; O2SAT 95
[2024-12-26] MEDS: TYLENOL #3 1 TABLET PO (09:04)
--- NOTE | 2024-12-26 09:27 | W.DS.TRANS ---
DC Summary - [employer]
-
Discharge Instructions:
Sleep Apnea Risk Low
Discharge Diagnosis/Procedures L shoulder OA w/ rotator cuff arthropathy s/p L
Reverse TSA w/ Dr Masters 12/25/24
Diet Diabetic, Carb Controlled
Activity As tolerated
Additional Activity Non-weightbearing left upper extremity
Driving Restrictions Not until seen by your Dr
Bathing Restrictions OK to Shower
Wound Care Leave dressing on until seen by surgeon's office
for follow-up in 2 weeks.
Instructions:
Stand-Alone Forms: Total Shoulder Replacement D/C
Changes to Home Medications: Yes
Discharge Medications:
DC Medications w/original date entered in [facility]
levothyroxine 25 mcg tablet 25 mcg PO Q48H Thyroid 07/30/16
alprazolam 0.25 mg tablet (Xanax) 0.25 mg PO HS PRN anxiety 05/22/24
cholecalciferol (vitamin D3) 25 mcg (1,000 unit) chewable tablet (Vitamin D3) 25 mcg PO DAILY Supplement 05/22/24
clobetasol 0.05 % lotion 1 applic topical DAILY seborrhea scalp 12/05/24
ketoconazole 2 % topical cream 1 applic topical DAILY athletes foot 12/05/24
trolamine salicylate 10 % lotion 1 applic topical DAILY PRN knee pain 12/05/24
mupirocin 2 % topical ointment 1 applic intranasal BID #1 tube 12/06/24
Saccharomyces boulardii 250 mg capsule (Florastor) 250 mg PO DAILY #7 caps 12/26/24
acetaminophen 300 mg-codeine 30 mg tablet 1 - 2 tab PO Q6H PRN moderate-severe pain #30 tabs 12/26/24
acetaminophen 325 mg tablet (Tylenol) 650 mg (2 x 325 mg) PO Q6H PRN mild pain #30 tabs 12/26/24
aspirin 325 mg tablet 325 mg PO DAILY #30 tabs 12/26/24
cefadroxil 500 mg capsule 500 mg PO DAILY #7 caps 12/26/24
docusate sodium 100 mg capsule 100 mg PO BID #30 caps 12/26/24
enalapril maleate 5 mg tablet 5 mg PO DAILY Blood Pressure #1 tab 12/26/24
famotidine 20 mg tablet 20 mg PO HS #30 tabs 12/26/24
meloxicam 15 mg tablet 15 mg PO DAILY PRN breakthrough pain #14 tabs 12/26/24
ondansetron HCl 4 mg tablet 4 mg PO Q6H PRN nausea and vomiting #30 tabs 12/26/24
sennosides 8.6 mg tablet (Sendy-oumou) 17.2 mg (2 x 8.6 mg) PO BID #30 tabs 12/26/24
Home Medication Changes
Saccharomyces boulardii 250 mg capsule (Florastor) 250 mg PO DAILY #7 caps 12/26/24
acetaminophen 300 mg-codeine 30 mg tablet 1 - 2 tab PO Q6H PRN moderate-severe pain #30 tabs 12/26/24
acetaminophen 325 mg tablet (Tylenol) 650 mg (2 x 325 mg) PO Q6H PRN mild pain #30 tabs 12/26/24
aspirin 325 mg tablet 325 mg PO DAILY #30 tabs 12/26/24
cefadroxil 500 mg capsule 500 mg PO DAILY #7 caps 12/26/24
docusate sodium 100 mg capsule 100 mg PO BID #30 caps 12/26/24
famotidine 20 mg tablet 20 mg PO HS #30 tabs 12/26/24
meloxicam 15 mg tablet 15 mg PO DAILY PRN breakthrough pain #14 tabs 12/26/24
ondansetron HCl 4 mg tablet 4 mg PO Q6H PRN nausea and vomiting #30 tabs 12/26/24
sennosides 8.6 mg tablet (Sendy-oumou) 17.2 mg (2 x 8.6 mg) PO BID #30 tabs 12/26/24
Pending Results: No
--- NOTE | 2024-12-26 10:26 | CM ---
Met with pt at bedside
Pt reports she lives with her in a ranch style home; 6 steps to enter
Independent, active, drives
DME - rolling walker, single point cane, raised toilet seat
SNF/HH - denies past hx
Has ride at d/c
PCP - Levi Savage
Pharm - [facility]
Given IMM
Pt to f/u with physician - outpatient rehab needs will be determined at visit
Plan - home with family care
[2024-12-26 11:22] VITALS: BP 117/66
--- NOTE | 2024-12-26 11:46 | PTCARENOTE ---
Discharge order written. Instructions reviewed with patient. No further questions. IV site removed. Volunteer escort by wheelchair to 's car waiting at [facility].
== END 2024-12-26 11:59 | disposition home or self-care (01) | DRG 483 ==
LOC: 2 SOUTH 06:01
PROVIDERS: ADMITTING PHYSICIAN Specialist; FAMILY PHYSICIAN Family Medicine
PROC: 0RRK00Z Replacement of Left Shoulder Joint with Reverse Ball and Socket Synthetic Substitute, Open Approach (ICD-10-PCS; 2024-12-25)
DX: M19.012 Primary osteoarthritis, left shoulder (principal); I45.2 Bifascicular block; I12.9 Hypertensive chronic kidney disease with stage 1 through stage 4 chronic kidney disease, or unspecified chronic kidney disease; N18.30 Chronic kidney disease, stage 3 unspecified; E11.22 Type 2 diabetes mellitus with diabetic chronic kidney disease; E78.5 Hyperlipidemia, unspecified; K21.9 Gastro-esophageal reflux disease without esophagitis; Z79.84 Long term (current) use of oral hypoglycemic drugs
CPT/HCPCS: 36415; 73020; 80053; 82962; 83036; 85027; 87070; 93005; 97110; 97167; 97535; C1713; C1776

== ENCOUNTER 2025-03-09 18:53 | Inpatient (IN) | payer MEDICARE, OTHER, SELFPAY ==
[2025-03-09] VITALS (9 sets, daily range): BP systolic 117–150; BP diastolic 66–91; BMI 26.9; BMI 26.8
[2025-03-09 13:58] LABS: % Basophils 0.4 % (0-2); % Eosinophils 2.4 % (0-6); % Immature Granulocytes 0.4 % (0-0.5); % Lymphocytes 17.2 % (20.5-51.1); % Monocytes 8.7 % (1.7-9.3); % Neutrophils 70.9 % (42.2-75.2); Absolute Eosinophils 0.2 10^3/uL (0-0.7); Absolute Lymphocytes 1.3 10^3/uL (1.2-3.4); Absolute Monocytes 0.7 10^3/uL (0.1-0.6); Absolute Neutrophils 5.4 10^3/uL (1.4-6.5); Hematocrit 35.8 % (37.0-47.0); Hemoglobin 12.1 g/dL (12.0-16.0); Mean Corp Hgb Conc. 33.8 g/dL (33.0-37.0); Mean Corpuscular Hgb 28.7 pg (27.0-31.0); Mean Platelet Volume 9.5 fL (7.4-10.4); Nucleated Red Blood Cells % 0 %; Platelet Count 212 10^3/uL (130-400); Red Blood Cell Count 4.21 10^6/uL (4.20-5.40); Red Cell Dist. Width 13.2 % (11.5-14.5); White Blood Cell Count 7.6 10^3/uL (4.8-10.8)
[2025-03-09 14:02] LABS: INR 1.11; PT 14.6 Sec (11.4-14.6)
[2025-03-09 14:03] LABS: APTT 27.3 Sec (23.4-35.0)
[2025-03-09 14:15] LABS: NT-proBNP 100 pg/ml; Troponin I < 0.012 ng/ml
[2025-03-09 14:43] LABS: ALT (SGPT) 14 U/L (0-35); AST (SGOT) 17 U/L (14-36); Alkaline Phosphatase 70 U/L (38-126); Blood Urea Nitrogen 15 mg/dl (7-17); Calcium 9.4 mg/dl (8.4-10.2); Carbon Dioxide 27 mmol/L (22-30); Chloride 103 mmol/L (98-107); Glucose 112 mg/dl (70-99); Potassium 4.8 mmol/L (3.5-5.1); Sodium 137 mmol/L (135-145); Total Bilirubin 0.5 mg/dl (0.2-1.3); Total Protein 7.3 g/dl (6.3-8.2); eGFR > 60.00
--- NOTE | 2025-03-09 15:27 | ED.GENMED ---
History of Present Illness
General
Chief Complaint: Cold/Flu/URI Symptoms
Time Seen by Provider: 03/09/25 15:26
History of Present Illness
History of Present Illness:
TIME OF INITIAL ENCOUNTER: 3:30 PM
HPI: The patient presents with some oropharyngeal discomfort and shortness of breath. She states that when she goes up to steps she becomes very short of breath. She has no chest pain or tightness. No changes in weight, no edema. No significant
cough.
EXAM:
GENERAL: Well appearing in no distress
HEENT: Moist oral mucosa, widely patent posterior oropharynx, no uvular edema, no erythema, no exudate
CARDIOVASCULAR: No murmurs, normal heart rate, regular rhythm, No chest wall tenderness
PULMONARY: No respiratory distress, breath sounds are clear and equal
ABDOMEN: Soft with no peritoneal signs, no tenderness
NEUROLOGIC: Excellent strength all extremities, no coordination deficits
PSYCHIATRIC: Appropriate mental status, normal insight and judgement
EXTREMITIES: Nontender, no edema, moves all extremities equally
SKIN: No rash, no lesions
NUMBER AND COMPLEXITY OF PROBLEMS ADDRESSED AT THE ENCOUNTER
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
� Acute Exacerbation and/or Progression of Chronic Illness: This is an acute problem
� Differential Diagnosis includes: PE, pneumonia, ACS unlikely, CHF
AMOUNT AND/OR COMPLEXITY OF DATA TO BE REVIEWED AND ANALYZED
� I performed an independent evaluation of and my interpretation is:
EKG: Sinus 80, left axis deviation, bifascicular block
CT: CTA by my read shows bilateral PE without heart strain
X-rays: Chest x-ray shows no acute abnormality
Laboratory Studies: White count and hemoglobin are normal, chemistries unremarkable, troponin less than 0.012, BNP is only 100
Other:
� Review of other/old records: The patient had left shoulder surgery with Dr. Masters in December
� Clinical information was obtained by an independent historian: I spoke to at bedside
� Prescriptions/Medications Considered but not given:
� Further testing considered but not performed:
RISK OF COMPLICATIONS AND/OR MORBIDITY OR MORTALITY OF PATIENT MANAGEMENT
� Social determinants of health affecting care: Lives at home
� Discussion with other providers: Hospitalist for admission.
� Escalation of care including admission/observation vs risk of discharge considered: Breath sounds are clear. Cardiac evaluation is unremarkable. Will send for PE study.
ANY OTHER UPDATES:
CTA shows bilateral PE. I have ordered heparin.
Past History
Past History
ED Past Medical History: Cancer, HTN, Hypothyroidism and Other (Diverticulitis, colitis)
ED Past Surgical History: Bowel resection, Gynecological, Orthopedic (Left knee surgery, laminectomy) and Other (Lungs tumor removal, umbilical hernia repair November 2017)
Social History
Tobacco: Former smoker
Alcohol: None
Drug: None
Personal:
Living: with family
Employment: Retired
Family History
Family History: Other (Noncontributory)
Phy Exam
Physical Exam
Physical Exam:
See HPI
Course
Orders/Labs/Results
Orders:
Orders
03/09/25 13:33
Electrocardiogram (*1) Urgent
Reason for Study: Shortness of Breath
EKG- Treatment ONCE
CR Chest - 2 Views Urgent
Comment:
Reason For Exam: SOB, cough
03/09/25 13:43
Complete Blood Count/With Diff Urgent
Comprehensive Metabolic Panel Urgent
PTT Urgent
Pro-BNP [NT-proBNP] Urgent
Prothrombin Time Urgent
Troponin I Urgent
03/09/25 15:37
CT Chest PE Study Urgent
Comment:
Reason For Exam: BAILEY clear lungs; remote h/o carcinoid resection
03/09/25 17:45
Heparin 5,300 units IV NOW STA
Heparin 93581 Units/250 ml 25,000 units in 250 ml IV PER PROTOCOL
Weight to be used for heparin protocol in kilograms (kg):: 66.7
Protocol:: DVT/PE
PTT Goal Range to be used:: PTT 73 to 111 seconds
Order type:: Initial
INITIAL Infusion Dose (UNITS/KG/hr) & then follow protocol:: 18 units/kg/hr
Infusion Dose in UNITS/hr & then follow protocol (UNITS/hr):: 1,200
INFUSION RATE in mL/hr & then follow protocol (mL/hr):: 12
For DVT/PE algorithm, re-bolus for low PTT?: Yes
PTT less than or equal to 64 seconds:: Re-bolus 80 units/kg (max 10,000units). Increase by 300 units/hr
(+ 3mL/hr)
PTT 64.1 to 72.9 seconds:: Re-bolus 40 units/kg (max 5,000 units). Increase by 100 units/hr
(+ 1mL/hr)
PTT 73 to 111 seconds:: Target Range. No change in rate.
PTT 111.1 to 130.9 seconds:: Decrease rate by 100 units/hr (- 1 mL/hr)
PTT 131 to 199.9 seconds:: HOLD for 1 hr. Then decrease by 200 units/hr (- 2mL/hr)
PTT greater than or equal to 200 seconds:: HOLD for 2 hrs & Notify Provider. Then decrease by 300 units/hr
(- 3mL/hr)
Lab follow-up:: Each change, PTT q6h until 2 consecutive are therapeutic. Then
PTT daily.
Pharmacy Request to Place See Dose Instructions PO NOW STA
Discontinue all Active Warfarin orders?: Yes
03/09/25 17:[address] Non Medication Order As Directed
Physician Order: PTT 6 hours after initial start of Heparin infusion
03/09/25 18:[address] See Dose Instructions IV DIRECTED
Abnormal Lab Results
03/09/25
13:43
Hct 35.8 L %
(37.0-47.0)
Absolute Monos (auto) 0.7 H 10^3/uL
(0.1-0.6)
Lymphocytes % 17.2 L %
(20.5-51.1)
Glucose 112 H mg/dl
(70-99)
03/09/25 13:43
03/09/25 13:43
Vital Signs
Initial and Last Documented VS:
Initial Vital Signs
Temp Pulse Resp BP Pulse Ox
36.8 C 83 18 147/81 95
03/09/25 13:29 03/09/25 13:29 03/09/25 13:29 03/09/25 13:29 03/09/25 13:29
Last Documented Vital Signs
Temp Pulse Resp BP Pulse Ox
36.8 C 85 24 130/82 96
03/09/25 13:29 03/09/25 17:15 03/09/25 17:15 03/09/25 17:05 03/09/25 17:15
*Critical Care Note
Total Time (30-74mins, 75-104mins- exclusive of procedures): Not Applicable
ED Attending Note
-
Portions of this chart may have been created with voice recognition software.� Occasional wrong word or��sound alike� substitutions may have occurred due to the inherent limitations of voice recognition software.
Discharge Plan
Departure
Patient Disposition: Admit
Date of Disposition: 03/09/25
Time of Disposition: 17:58
Presentation/result/management discussed w/ accepting MD/DO: Hospitalist
Discharge Problem:
Pulmonary emboli
Prescriptions:
No Action
levothyroxine 25 MCG tablet
25 mcg PO Q48H
cholecalciferol (vitamin D3) [Vitamin D3] 25 mcg (1,000 unit) Tablet,Chewable
25 mcg PO DAILY
alprazolam [Xanax] 0.25 mg Tablet
0.25 mg PO HS PRN (Reason: anxiety)
trolamine salicylate 10 % Lotion
1 applic TOPICAL DAILY PRN (Reason: knee pain)
ketoconazole 2 % Cream
1 applic TOPICAL DAILY
clobetasol 0.05 % Lotion
1 applic TOPICAL DAILY
mupirocin 2 % ointment
1 applic intranasal BID Qty: 1 0RF
Rx Instructions:
Prescribed by PCP pre-op
aspirin 325 mg Tablet
325 mg PO DAILY Qty: 30 0RF
Rx Instructions:
Take daily x4 weeks for blood clot prevention
docusate sodium 100 mg Capsule
100 mg PO BID Qty: 30 0RF
meloxicam 15 mg Tablet
15 mg PO DAILY PRN (Reason: breakthrough pain) Qty: 14 0RF
Rx Instructions:
Take daily with food as needed for pain not controlled by Tylenol & Tylenol with Codeine
famotidine 20 mg Tablet
20 mg PO HS Qty: 30 0RF
Rx Instructions:
Take nightly while on post-surgical pain meds to prevent GI upset.
sennosides [Sendy-oumou] 8.6 mg Tablet
17.2 mg PO BID Qty: 30 0RF
acetaminophen-codeine 300-30 mg Tablet
1 - 2 tab PO Q6H PRN (Reason: moderate-severe pain) Qty: 30 0RF
Rx Instructions:
1 tab for moderate pain, 2 if severe.
Dx total joint.
ondansetron HCl 4 mg tablet
4 mg PO Q6H PRN (Reason: nausea and vomiting) Qty: 30 0RF
cefadroxil 500 mg capsule
500 mg PO DAILY Qty: 7 0RF
Rx Instructions:
Start day after discharge and continue daily until finished.
Saccharomyces boulardii [Florastor] 250 mg capsule
250 mg PO DAILY Qty: 7 0RF
Rx Instructions:
Over the counter. Take while on antibiotic.
If unavailable, choose a different probiotic.
acetaminophen [Tylenol] 325 mg Tablet
650 mg PO Q6H PRN (Reason: mild pain) Qty: 30 0RF
Rx Instructions:
DO NOT exceed >4000 mg daily while on Tylenol with Codeine.
1 Tylenol with Codeine = 300 mg of Tylenol
enalapril maleate 5 mg Tablet
5 mg PO DAILY Qty: 1 0RF
Rx Instructions:
HOLD IF systolic blood pressure <130 while on post-surgical narcotics.
Referrals:
Levi Savage MD [Family Provider] -
Interventions
Interventions:
*Risk Screen - Suicide Last Done: 03/09/25 13:29
*General Assessment Last Done: 03/09/25 16:27
*Neglect/Abuse Screening Last Done: 03/09/25 16:28
*ED- Fall Risk Assessment Last Done: 03/09/25 16:27
*ED COVID-19 Vaccine History Last Done: 03/09/25 16:27
ED- Pulmonary Assessment Last Done: 03/09/25 16:46
Discharge Date and Time
Print Language: ETHIOPIAN
--- NOTE | 2025-03-09 16:24 | EDRN ---
Pt states her throat feels tight and hard to breath in and out that started yesterday. Pt also feeling lightheaded and also has BIALEY. Pt also very fatigued w/ sleeping during the day which she does not usually do w/ weakness. Pt has been
intermittently nausea for 3 days, gone today.
--- NOTE | 2025-03-09 16:44 | EDRN ---
Unable to get AC IV access for PE Study w/ VAT RN TT'd at this time.
--- NOTE | 2025-03-09 18:22 | EDRN ---
Dr. Marcos in room w/pt at this time.
--- NOTE | 2025-03-09 18:35 | HPS.HSE ---
Family Physician
-
Family Physician: Levi Savage MD
Chief Complaint
-
Shortness of breath
History of Present Illness
Patient started noticing shortness of breath and the last 2 days.
She noticed with exertion. She was extremely short of breath after climbing a flight of stairs yesterday. No chest pain or shortness of breath.
She was also noticing that she had to take a deep breath and even other activities were making her short of breath.
Denies any cough. No palpitations.
For the last week she was not feeling well in general, bit of nausea. No abdominal pain or diarrhea. She was tired and feeling sleepy. She had some lightheadedness for 3 4 days. She has trouble with low blood sugars and she thought maybe that is
the reason. Did not notice any leg swelling.
In December she had a left shoulder replacement and she thinks maybe she is little less active after that.
Patient had a CT chest which showed multilobar PE in the bilateral lower lobe lobar, segmental and subsegmental branches. Trace left pleural effusion was noted. Mild left lower lobe posterior basilar opacity which may be atelectasis or developing
infarct. Patient has no chest pain.
No prior history of DVT. Denies any leg swelling. No recent travel.
She says she is up-to-date with her cancer screening including mammogram, prior Pap smears and colonoscopies.
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
History of diverticulitis and had a sigmoidectomy in the past ;had a rectal bleeding somewhat last year suspected secondary active proctitis. No further episodes since then.
Medical History
Past Medical History
Past Medical History: Reports Other
Additional Past Medical History:
Colitis/diverticulitis status post robotic sigmoidectomy
HTN
Hypothyroidism
bronchial cancer with lung tumor removal
former smoker
Past Surgical History: Reports Other
Additional Past Surgical History:
Bowel resection robotic sigmoidectomy due to diverticulitis
Lung tumor removal secondary bronchial cancer
Umbilical hernia repair November 2017
Left knee surgery
Laminectomy
Social History
Tobacco: Former Smoker
Alcohol: None
Drug: None
Personal:
Living: With Family
Employment: Retired
Family History
Family History: Other (Sister history of colitis mother CVA father age 86 from a fall family history of colon cancer)
Allergies / Home Medications
Allergies reflects when Allergies were last updated in [facility].
Home Medications with original date entered in [facility]
Allergy/Medication List:
Allergies
Allergy/AdvReac Type Severity Reaction Status Date / Time
amoxicillin Allergy diarrhea Verified 01/01/22 10:46
morphine Allergy Swelling @ Verified 01/01/22 10:46
IV site
Penicillins Allergy Rash Verified 01/01/22 10:46
Home Medications
levothyroxine 25 mcg tablet 25 mcg PO Q48H Thyroid 07/30/16
cholecalciferol (vitamin D3) 25 mcg (1,000 unit) chewable tablet (Vitamin D3) 25 mcg PO DAILY 05/22/24
cranberry extract 50 mg chewable tablet 50 mg PO DAILY 05/22/24
enalapril maleate 5 mg tablet 5 mg PO Q48H 05/22/24
Review of Systems
-
A 12 point ROS was completed and negative except as noted: Yes
Physical Exam
Vital Signs
Vital Signs
Temp Pulse Resp BP Pulse Ox
98.2 F 85 22 132/91 98
03/09/25 13:29 03/09/25 18:00 03/09/25 18:00 03/09/25 18:00 03/09/25 17:45
Physical Exam
General: No Apparent Distress
Respiratory: Clear and Non Labored Respirations; No Accessory Resp Muscle Use
Cardiac: S1/S2 and Regular Rhythm; No Tachycardia
GI: Soft, Non Tender and No Hepatosplenomegaly
Musculoskeletal: No Edema
Neuro: AO x 3
Psych: Calm; No Intact Judgment/Insight
Laboratory Results
-
03/09/25 13:43
03/09/25 13:43
Laboratory Results
PT 14.6 Sec (11.4-14.6) 03/09/25 13:43
INR 1.11 03/09/25 13:43
APTT Cancelled 03/09/25 17:47
Total Bilirubin 0.5 mg/dl (0.2-1.3) 03/09/25 13:43
AST 17 U/L (14-36) 03/09/25 13:43
ALT 14 U/L (0-35) 03/09/25 13:43
Alkaline Phosphatase 70 U/L (38-126) 03/09/25 13:43
Troponin I < 0.012 ng/ml 03/09/25 13:43
Data Reviewed
-
CT Scan: Report Reviewed by me (CT chest)
Lab Data: Labs Reviewed by me
Impression/Plan
-
Acute bilateral lower lobe lobar, segmental and subsegmental PE-symptomatically shortness of breath but hemodynamically stable. There is no mention of RV strain on the CT. Patient is not hypoxic.
Admitted telemetry
Start on IV heparin.
Follow closely for any rectal bleeding with a history of rectal bleeding a year ago. Currently hemoglobin stable.
Check ultrasound of the legs. Check echocardiogram.
Add D-dimer for baseline.
Consult pulmonary.
Check for the cost of Eliquis.
Essential hypertension-continue with the home medication
Hypothyroidism-continue with Synthroid
Full code
[2025-03-09] MEDS: HEPARIN 5300 UNITS IV (18:49)
[2025-03-09] MEDS: HEPARIN 25000 UNITS/250 ML IV (18:50)
[2025-03-09 19:56] LABS: D-Dimer 7.72 ug/mlFEU (0.00-0.50)
--- NOTE | 2025-03-09 22:00 | PTCARENOTE ---
2100 pt arrived to floor from US. heparin gtt running; however site had infiltrated. informed VAT. pt aaox3, no c/o pain, no sob, and no dizziness. pt oriented to room w/ call hernadez in reach.
2200 heparin gtt restarted and PTT retimed.
[2025-03-10 03:51] VITALS: BP 119/77
[2025-03-10 04:26] LABS: Hematocrit 33.7 % (37.0-47.0); Hemoglobin 11.4 g/dL (12.0-16.0); Mean Corp Hgb Conc. 33.8 g/dL (33.0-37.0); Mean Corpuscular Hgb 28.5 pg (27.0-31.0); Mean Corpuscular Volume 84.3 fL (81.0-99.0); Mean Platelet Volume 9.8 fL (7.4-10.4); Platelet Count 223 10^3/uL (130-400); Red Cell Dist. Width 13.2 % (11.5-14.5); White Blood Cell Count 7.5 10^3/uL (4.8-10.8)
[2025-03-10 04:33] LABS: APTT 107.6 Sec (23.4-35.0)
[2025-03-10 07:30] VITALS: BP 128/83
[2025-03-10] MEDS: VASOTEC 5 MG PO (09:04)
[2025-03-10] MEDS: ZOFRAN 4 MG IV (09:15)
[2025-03-10 11:30] VITALS: BP 132/92
[2025-03-10] MEDS: VITAMIN D3 (cholecalciferol) 25 MCG PO (11:43)
--- NOTE | 2025-03-10 12:58 | W.PN.HOSP.TC ---
Today's Communication/Plan
-
Continue IV heparin
Await echocardiogram
Await pulmonary input
Assessment / Plan
Assessment / Plan
Acute bilateral lower lobe lobar, segmental and subsegmental PE-symptomatically shortness of breath but hemodynamically stable. There is no mention of RV strain on the CT. Patient is not hypoxic.
Bilateral nonocclusive lower extremity DVT
Started on IV heparin-continue with IV heparin
Follow closely for any rectal bleeding with a history of rectal bleeding a year ago. Currently hemoglobin stable.
Check echocardiogram.
Elevated D-dimers noted
Consulted pulmonary.
Essential hypertension-continue with the home medication
Hypothyroidism-continue with Synthroid
Full code
Anticipated Discharge: 24 - 48 hours
Subjective/Interval History
-
Date of Service: March 10, 2025
Not short of breath at rest. Ambulated to the bathroom and was okay. No chest pain or palpitations.
Has some nausea but was able to tolerate her full breakfast. No abdominal pain. No diarrhea.
Objective Data
-
Labs:
Laboratory Results
03/10/25 03/10/25 03/10/25
01:00 04:03 10:00
WBC 7.5
Hgb 11.4 L
Hct 33.7 L
Plt Count 223
APTT Cancelled 107.6 H 111.0 H
Vital Signs:
Vital Signs
Temp Pulse Resp BP Pulse Ox
98.2 F 77 16 132/92 97
03/10/25 11:30 03/10/25 11:30 03/10/25 11:30 03/10/25 11:30 03/10/25 11:30
I&O
03/09/25 03/10/25 03/11/25
06:59 06:59 06:59
Intake Total 960 / 960
Balance 960 / 960
Physical Exam
-
General: No Apparent Distress
Respiratory: Clear to Auscultation and Non Labored Respirations; Negative Accessory Resp Muscle Use
Cardiac: Regular Rhythm and S1/S2; Negative Tachycardic
Musculoskeletal: No Edema
Neuro: AO x 3
Data Reviewed
-
Ultrasound: Report Reviewed by me (us legs)
Labs: Labs Reviewed by me
[2025-03-10 14:30] VITALS: BP 124/79
--- NOTE | 2025-03-10 14:38 | CON.PUL ---
Consultation
Consultation Request
Date/Time Consultation Requested: 03/09/2025 - 193
Date/Time Consultation Performed: 03/10/2025 - 0
Requesting Provider: Dr. Marcos
Performing Provider: Dr. Maldonado
Reason for Consultation: Acute PE
Medical History
-
Chief Complaint: SOB, dizziness + fatigue
History of Present Illness:
84-year-old female with a past medical history of carcinoid tumor s/p resection, former tobacco smoker, hypertension, hypothyroidism, history of colitis and history of diverticulitis who presents with shortness of breath with dizziness and fatigue.
She has been feeling dizzy and fatigued all week [employer] and then became short of breath 1 day prior to arrival with cough and tightness in her throat. In December she had a shoulder replacement and she believes she has been less active since that time.
She was afebrile in the ER to 98.2 �F, pulse rate 83, respiratory rate 18, BP 147/81 and saturating 95% on room air. Labs showed D-dimer 7.72, troponin negative at <0.012, and proBNP negative at 100. CXR showed no acute cardiopulmonary process.
CTA chest showed an acute pulmonary thromboembolism in the bilateral lower lobes. Also a mild left lower lobe posterior opacity which may represent atelectasis vs an infarct. Patient started on a heparin drip, admitted to the hospitalist service
and Pulmonary service now consulted for additional management/recommendations.
When I saw the patient, she was resting in bed on room air breathing comfortably, saturating 99%. Heart rate 80. Currently on heparin drip. She currently denies chest pain, CORREA, nausea, fevers or chills.
PMHx: Hypothyroidism, hypertension, seasonal allergies, history of colitis, history of diverticulitis (2017), former tobacco smoker
PSHx: Left knee surgery, bunionectomy, thyroidectomy, carcinoid tumor removal, lumbar laminectomy, ear surgery x 7, tubal ligation, umbilical hernia repair, right shoulder replacement, robotic assisted sigmoid resection, excision of back cyst, right
knee arthroscopy
Past Medical History
Past Medical History: Other (Above as per HPI)
Past Surgical History: Other (Above as per HPI)
Social History
Tobacco: Former Smoker (Quit 1983, 23-fdtm-mygs history)
Alcohol: None
Drug: None
Personal:
Living: With Family
Employment: Retired
Family History
Family History: Other (Mother: stroke; Sibling: of ischemic colitis)
Allergies / Home Medications
Allergies
Allergy/AdvReac Type Severity Reaction Status Date / Time
amoxicillin Allergy diarrhea Verified 03/09/25 13:30
morphine Allergy Swelling @ Verified 03/09/25 13:30
IV site
Penicillins Allergy Rash Verified 03/09/25 13:30
Home Medications
�Medication �Instructions �Recorded �Confirmed �Last Taken �Type
levothyroxine 25 mcg tablet 25 mcg PO Q48H Thyroid 07/30/16 03/09/25 03/09/25 History
enalapril maleate 5 mg tablet 5 mg PO DAILY Blood Pressure #1 tab 12/26/24 03/09/25 03/09/25 Rx
acetaminophen 500 mg tablet 500 mg PO DAILYPRN PRN mild pain 03/09/25 03/09/25 03/05/25 History
cholecalciferol (vitamin D3) 25 25 mcg PO NOON Supplement 03/09/25 03/09/25 03/08/25 History
mcg (1,000 unit) tablet
sennosides 8.6 mg tablet (Sendy-oumou) 8.6 mg PO DAILYPRN PRN constipation 03/09/25 03/09/25 Unknown History
Review of Systems
-
History Source: Patient
All other systems: Negative unless noted
Vitals / Labs / Diagnostic Testing
Vital Signs
Temp Pulse Resp BP Pulse Ox
98.4 F 75 16 128/83 96
03/10/25 07:30 03/10/25 07:30 03/10/25 07:30 03/10/25 07:30 03/10/25 07:30
Lab Data
03/10/25 04:03
03/09/25 13:43
Laboratory Results
03/09/25 03/09/25 03/10/25
13:43 17:47 01:00
PT 14.6
INR 1.11
APTT 27.3 Cancelled Cancelled
03/10/25
04:03
PT
INR
APTT 107.6 H
Diagnostic Testing:
Physical Exam
-
HEENT: Normocephalic and Anicteric
Cardiovascular: S1/S2 and Peripheral Edema (negative)
Respiratory: Clear, Wheeze (negative), Rales (negative), Rhonchi (negative) and Non-Labored Respirations
GI: Soft, Non Distended, Non Tender and Normal Bowel Sounds
Neurology: AO x 3 and Tremors (negative)
Skin: Warm and Dry
General: Respiratory Distress (negative), Comfortable, Chills (negative) and Sweats (negative)
Assessment
-
Assessment: 84-year-old female with a past medical history of carcinoid tumor s/p resection, former tobacco smoker, hypertension, hypothyroidism, history of colitis and history of diverticulitis who presents with shortness of breath with dizziness
and fatigue. She has been feeling dizzy and fatigued all week [employer] and then became short of breath 1 day prior to arrival with cough and tightness in her throat. In December she had a shoulder replacement and she believes she has been less active
since that time. She was afebrile in the ER to 98.2 �F, pulse rate 83, respiratory rate 18, BP 147/81 and saturating 95% on room air. Labs showed D-dimer 7.72, troponin negative at <0.012, and proBNP negative at 100. CXR showed no acute
cardiopulmonary process. CTA chest showed an acute pulmonary thromboembolism in the bilateral lower lobes. Also a mild left lower lobe posterior opacity which may represent atelectasis vs an infarct. Patient started on a heparin drip, admitted to
the hospitalist service and Pulmonary service now consulted for additional management/recommendations.
Chronic conditions [employer]: Hypothyroidism, hypertension, seasonal allergies, history of colitis, history of diverticulitis (2017), former tobacco smoker
Impression:
#Submassive bilateral PE � unclear if provoked vs unprovoked
#Bilateral DVT involving right popliteal vein + left PT vein
#Anemia (mild)
#Hypertension
#Hypothyroidism
#Former tobacco smoker (0.5 PPD x 30 years, quit 1983)
#History of left lung carcinoid tumor s/p resection at [facility] (patient reports this was done in 1998)
Plan:
- Patient found to have a bilateral lower lobe PE with significant bronchial wall thickening in the lower lobes, L >R; with my review I also appreciate filling defects in RML and MIREYA pulmonary arteries
- No evidence of RV strain both radiographically or chemically
- She does have bilateral lower extremity DVTs
- Continue with heparin drip with eventual transition to a NOAC, preferably Eliquis
- Check echo to assess PA pressures + assess RV systolic function
- Recommend case management consult to assess cost of Eliquis
- Recommend outpatient hematology consult for hypercoagulable workup and to assist with duration of AC
- Recommend age-appropriate cancer screening upon discharge
- Maintain SpO2 >90-94% with supplemental O2 as needed
- prn nebulized bronchodilators - not currently bronchospastic
- Incentive spirometer encouraged q1hr while awake
- Replete electrolytes with K>4, Mg>2
- Trend H/H and transfuse if needed to keep Hb>7g/dL; keep plt>20k, unless there is concern for bleeding then keep plt>50k
- Maintain euglycemia with goal BG >100 and <180
- DVT ppx: Heparin drip
Pulmonary service will continue to follow along. Outpatient pulmonary office follow-up will be arranged for full PFTs and symptom monitoring.
Data:
CTA chest 03/09/2025:
1. Positive for acute pulmonary thromboembolism with thrombus in the bilateral lower lobe lobar, segmental, and subsegmental branches.
2. Trace left pleural effusion.
3. Mild left lower lobe posterior basilar opacity, which may represent atelectasis or a developing pulmonary infarct
Bilateral lower extremity duplex US 03/09/2025: Nonocclusive thrombus within the right popliteal vein and a left posterior tibial vein.
Total time spent today was 57 minutes for this encounter. Time includes reviewing laboratory test/imaging results, reviewing pertinent medical records, obtaining and reviewing medical history, performing an appropriate exam, ordering medications,
tests and procedures. Time also includes documentation of this encounter, coordinating patient care and communicating with other healthcare professionals. Total time does not include separately billed tests performed on this date of service.
--- NOTE | 2025-03-10 16:42 | CM ---
project manager finance reviewed patient's chart and met with patient and patient lives with spouse in a 1 story home with 5 steps to enter, patient is independent with adl's and ambulation, no dme, patient drives. project manager finance was asked to check [place] of
Eliquis cost is $432.68 per month, till patient reached her deductible, patient agreeable to cost coupon prided and patient reports she has a PACE card. and will talk with her pharmacy.
PCP: Dr. Savage
Pharmacy [facility] in [place]
Plan; Home with spouse when stable.
[2025-03-10] MEDS: HEPARIN 25000 UNITS/250 ML IV (16:50)
[2025-03-10 19:00] VITALS: BP 127/72
[2025-03-10 23:06] VITALS: BP 130/69
[2025-03-11 03:00] VITALS: BP 128/74
[2025-03-11 07:00] VITALS: BP 145/85
[2025-03-11] MEDS: SYNTHROID 25 MCG PO (07:14)
--- NOTE | 2025-03-11 07:23 | W.PN.HOSP.TC ---
Today's Communication/Plan
-
Discharge today
Assessment / Plan
Assessment / Plan
Physical Exam
General: No Apparent Distress
HEENT: Normocephalic
Respiratory: Clear to Auscultation Bilaterally
Cardiac: Regular Rhythm and S1/S2
Abdomen: Positive bowel sounds. Soft and nontender.
Musculoskeletal: No Edema
Neuro: AAO x 3
Assessment/Plan
Submassive bilateral PE � suspect unprovoked
Bilateral DVT involving right popliteal vein + left PT vein
Started on IV heparin-continue with IV heparin
On discharge: Eliquis 10 mg Q12H everyday for 7 days, followed by Eliquis 5 mg BID with 3 refills
Echocardiogram with no RV strain
Consulted pulmonary.
Anemia
History of Rectal Bleeding
Seasonal allergies
History of colitis
History of diverticulitis (2016)
Hypertension
Hypothyroidism
Former tobacco smoker (0.5 PPD x 30 years, quit 1983)
History of left lung carcinoid tumor s/p resection at [facility] (patient reports this was done in 1998)
Code Status: Full code
More than 30 minutes spent in discharge including
Final examination of the patient
Summarizing hospital stay
Instructions for continuing care to all relevant caregivers
Preparation of discharge records, prescriptions, and referral forms
Total time spent (in minutes): 37
Anticipated Discharge: Today
Subjective/Interval History
-
Date of Service: March 11, 2025
Patient was seen and examined. She reported her shortness of breath is gone, she denied any new chest pain, she said she is ambulating in the room without any problems. She also said that she feels ready to go home and would like to go home today.
Objective Data
-
Labs:
Laboratory Results
03/11/25
06:00
WBC Pending
Hgb Pending
Hct Pending
Plt Count Pending
APTT Pending
Vital Signs:
Vital Signs
Temp Pulse Resp BP Pulse Ox
97.7 F 72 18 128/74 96
03/11/25 03:00 03/11/25 03:00 03/11/25 03:00 03/11/25 03:00 03/11/25 03:00
I&O
03/10/25 03/11/25 03/12/25
06:59 06:59 06:59
Intake Total 960 / 960 1140 / 1140
Balance 960 / 960 1140 / 1140
[2025-03-11] MEDS: VASOTEC 5 MG PO (08:06)
[2025-03-11 09:21] LABS: Hemoglobin 12.2 g/dL (12.0-16.0); Mean Corp Hgb Conc. 33.9 g/dL (33.0-37.0); Mean Corpuscular Hgb 28.6 pg (27.0-31.0); Mean Corpuscular Volume 84.3 fL (81.0-99.0); Mean Platelet Volume 9.8 fL (7.4-10.4); Platelet Count 262 10^3/uL (130-400); Red Blood Cell Count 4.27 10^6/uL (4.20-5.40); Red Cell Dist. Width 13.2 % (11.5-14.5); White Blood Cell Count 6.5 10^3/uL (4.8-10.8)
--- NOTE | 2025-03-11 09:54 | W.PN.PUL3 ---
Today's Communication / Plan
-
Remains on IV heparin, transition to OAC per team
Stable on RA, ambulating in room
Will need OP follow up and likely hypercoag w/u
OP Pulmonary FU arrangements
Discharge planning per team once transitioned
Assessment
-
84-year-old female with a past medical history of carcinoid tumor s/p resection, former tobacco smoker, hypertension, hypothyroidism, history of colitis and history of diverticulitis who presents with shortness of breath with dizziness and fatigue.
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 In December she had a shoulder replacement and she believes she has been less active since that time.
She was afebrile in the ER to 98.2 �F, pulse rate 83, respiratory rate 18, BP 147/81 and saturating 95% on room air. Labs showed D-dimer 7.72, troponin negative at <0.012, and proBNP negative at 100. CXR showed no acute cardiopulmonary process.
CTA chest showed an acute pulmonary thromboembolism in the bilateral lower lobes. Also a mild left lower lobe posterior opacity which may represent atelectasis vs an infarct. Patient started on a heparin drip, admitted to the hospitalist service
and Pulmonary service now consulted for additional management/recommendations.
Submassive bilateral PE � suspect unprovoked
Bilateral DVT involving right popliteal vein + left PT vein
Anemia (mild)
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
Seasonal allergies
History of colitis
History of diverticulitis (2016)
Hypertension
Hypothyroidism
Former tobacco smoker (0.5 PPD x 30 years, quit 1983)
History of left lung carcinoid tumor s/p resection at [facility] (patient reports this was done in 1998)
Plan:
Stable on RA, no new complaints
Sitting in chair, active in room
Patient found to have a bilateral lower lobe PE with significant bronchial wall thickening in the lower lobes, L >R; with my review I also appreciate filling defects in RML and MIREYA pulmonary arteries
No evidence of RV strain both radiographically or chemically
She does have bilateral lower extremity DVTs
Continue with heparin drip with eventual transition to a NOAC, preferably Eliquis
We discussed PE management and what to expect
Recommend case management consult to assess cost of Eliquis
Check echo to assess PA pressures + assess RV systolic function--pending
No prior history of cardiomyopathy
Recommend outpatient hematology consult for hypercoagulable workup and to assist with duration of AC
Had prior orthopedic shoulder surgery in December which is not likely the cause/denies sedentary lifestyle/family history
Recommend age-appropriate cancer screening upon discharge
Maintain SpO2 >90-94% with supplemental O2 as needed
prn nebulized bronchodilators - not currently bronchospastic
Incentive spirometer encouraged q1hr while awake
Replete electrolytes with K>4, Mg>2
Trend H/H and transfuse if needed to keep Hb>7g/dL; keep plt>20k, unless there is concern for bleeding then keep plt>50k
Maintain euglycemia with goal BG >100 and <180
DVT ppx: Heparin drip
Pulmonary service will continue to follow along. Outpatient pulmonary office follow-up will be arranged for full PFTs and symptom monitoring.
Reviewed plan of care again with patient
Data:
CTA chest 03/09/2025:
1. Positive for acute pulmonary thromboembolism with thrombus in the bilateral lower lobe lobar, segmental, and subsegmental branches.
2. Trace left pleural effusion.
3. Mild left lower lobe posterior basilar opacity, which may represent atelectasis or a developing pulmonary infarct
Bilateral lower extremity duplex US 03/09/2025: Nonocclusive thrombus within the right popliteal vein and a left posterior tibial vein.
-----
Total time spent today was 51 minutes for this encounter. Time includes reviewing laboratory test/imaging results, reviewing pertinent medical records, obtaining and reviewing medical history, performing an appropriate exam, ordering medications,
tests and procedures. Time also includes documentation of this encounter, coordinating patient care and communicating with other healthcare professionals. Total time does not include separately billed tests performed on this date of service.
Subjective Data
-
Date of Service:
Date of Service: March 11, 2025
Chief Complaint: Pulmonary Follow Up
Subjective:
Remains stable on RA, on IV heparin
Sitting in chair
No new complaints
Objective Data
Data Reviewed
Vital Signs / I&O / Oxygen:
Vital Signs
Temp Pulse Resp BP Pulse Ox
97.6 F 75 18 121/78 98
03/11/25 07:00 03/11/25 08:06 03/11/25 07:00 03/11/25 08:06 03/11/25 07:00
Intake and Output
03/10/25 03/11/25 03/12/25
06:59 06:59 06:59
Intake Total 960 / 960 1140 / 1140
Balance 960 / 960 1140 / 1140
SaO2 98
Physical Exam
General: Comfortable, Good Appetite and Other (NAD)
HEENT: Normocephalic, Anicteric and Moist Mucous Membranes
Cardiovascular: S1-S2 and Regular Rhythm
Respiratory: Clear and Non-Labored Respirations
GI: Soft, Non Distended and Non Tender
Neurology: Awake, Alert, Oriented and No Motor Deficits
Skin: Warm, Dry and Good Color
Labs/Micro/Reports
Lab Data
03/11/25 08:36
03/09/25 13:43
Laboratory Results
03/10/25
10:00
APTT 111.0 H
Microbiology
03/09/25 21:45 Nose MRSA Screen - Final
No Methicillin Resistant Staphylococcus aureus isolated.
[2025-03-11 09:55] LABS: APTT 82.7 Sec (23.4-35.0)
[2025-03-11 11:00] VITALS: BP 124/72
[2025-03-11] MEDS: VITAMIN D3 (cholecalciferol) 25 MCG PO (11:32)
[2025-03-11] MEDS: HEPARIN 25000 UNITS/250 ML IV (14:37)
--- NOTE | 2025-03-11 14:38 | CM ---
CM reviewed chart, patient seen bedside with spouse, plan for discharge today. Patient aware of Eliquis cost, previously provided with coupon. IMM verbally reviewed, provided with copy, placed in chart. CM will continue to follow for all discharge
planning needs.
Plan; home no needs.
[2025-03-11 15:00] VITALS: BP 122/73
--- NOTE | 2025-03-11 15:57 | W.DCSUMMARY ---
Discharge Summary
Discharge Data
Date of Admission: 03/09/25
Date of Discharge: 03/11/25
Total time spent discharging patient (in min): 37
-
Pending Results: No
Hospital Course
84 y/o female who presented with significant shortness of breath. CT Chest showed bilateral pulmonary emboli, and she was also found to have bilateral lower extremity deep vein thrombosis. Patient was started on Heparin Drip. Pulmonary was
consulted. Echocardiogram showed: mild concentric left ventricular hypertrophy, normal left ventricular chamber size, normal left ventricular systolic function, normal regional wall motion, left ventricular ejection fraction is 55-60% by visual
assessment, indeterminate diastolic function, mitral valve opens normally, mitral annular calcification, thickened mitral valve leaflets, mild mitral regurgitation, trileaflet aortic valve, thickened aortic valve with normal leaflet excursion, mild
to moderate aortic regurgitation, tricuspid valve opens normally, mild tricuspid regurgitation, estimated pulmonary artery pressure of 36 mmHg, assuming a right atrial pressure of 3 mmHg, normal right ventricular size and function. Patient's
symptoms improved and she was stable for discharge on Eliquis.
Discharge Plan
-
Patient Disposition: Home (Routine Discharge)
Discharge Diagnosis/Procedures: Sub-massive bilateral pulmonary embolism � suspect unprovoked
Bilateral Deep Vein Thrombosis involving right popliteal vein and left posterior tibial vein
Anemia
History of Rectal Bleeding
Seasonal allergies
History of colitis
History of diverticulitis (2016)
Hypertension
Hypothyroidism
Former tobacco smoker (0.5 PPD x 30 years, quit 1983)
History of left lung carcinoid tumor status post resection at [facility] (patient reports this was done in 1998)
CT Chest PE Study (as per radiologist's report):
'IMPRESSION:
1. Positive for acute pulmonary thromboembolism with thrombus in the bilateral lower lobe lobar, segmental, and subsegmental branches.
2. Trace left pleural effusion.
3. Mild left lower lobe posterior basilar opacity, which may represent atelectasis or a developing pulmonary infarct'
Peripheral Venous Lower Extremity Ultrasound (as per radiologist's report)
'Nonocclusive thrombus within the right popliteal vein and a left posterior tibial vein.'
Condition: Good
Diet: As tolerated
Activity: As tolerated
Activity Restrictions/Additional Instructions:
Eliquis is 10 mg twice daily everyday for 7 days, followed by 5 mg twice daily for several months -- please follow-up (within 1 month) with your primary care physician and pulmonary physician for refills and to clarify how long you need to be on
Eliquis for -- THIS IS VERY IMPORTANT
Please start taking your Eliquis on the evening of March 11, 2025.
Instructions: Pulmonary embolism (blood clot in the lung), Deep vein thrombosis (blood clot in the leg), Apixaban, Deep vein thrombosis - Discharge instructions, Pulmonary embolism - Discharge instructions
Referrals:
Martínez Maldonado MD [Active] - in four to six weeks (full PFTs on day of office visit)
Levi Savage MD [Family Provider] - in less than 1 week (Re-evaluation for age appropriate cancer screening)
Theresa He MD [Active] - in three to four weeks (Hypercoagulable workup for bilateral DVT and PE. Age appropriate cancer screening.)
Additional Discharge Medication Instructions: Eliquis is 10 mg twice daily for 7 days, followed by 5 mg twice daily for several months
Prescriptions:
New
Eliquis 5 mg tablet
See Rx Instructions .ROUTE .COMPLEX Qty: 300 0RF
Rx Instructions:
10 mg Q12H everyday for 7 days; followed by 5 mg Q12H
Continued
levothyroxine 25 MCG tablet
25 mcg PO Q48H
enalapril maleate 5 mg Tablet
5 mg PO DAILY Qty: 1 0RF
sennosides [Sendy-oumou] 8.6 mg tablet
8.6 mg PO DAILYPRN PRN (Reason: constipation)
acetaminophen 500 mg Tablet
500 mg PO DAILYPRN PRN (Reason: mild pain)
cholecalciferol (vitamin D3) 25 mcg (1,000 unit) Tablet
25 mcg PO NOON
Discharge Orders:
Discharge Patient (As Directed); Ordered 03/11/25
Ordered By: Tripp Chavarria
Discharge Date and Time
Discharge Date/Time: 03/11/25 17:39
Print Language: DOMINICAN
== END 2025-03-11 17:39 | disposition home or self-care (01) | DRG 176 ==
LOC: 4 WEST ACU 18:53
PROVIDERS: Student in an Organized Health Care Education/Training Program; ADMITTING PHYSICIAN Internal Medicine; ATTENDING PHYSICIAN Hospitalist; CONSULT PHYSICIAN Internal Medicine Critical Care Medicine; EMERGENCY PHYSICIAN Emergency Medicine; FAMILY PHYSICIAN Family Medicine
DX: I26.94 Multiple subsegmental thrombotic pulmonary emboli without acute cor pulmonale (principal); I82.431 Acute embolism and thrombosis of right popliteal vein; I82.441 Acute embolism and thrombosis of right tibial vein; E89.0 Postprocedural hypothyroidism; D64.9 Anemia, unspecified; J30.2 Other seasonal allergic rhinitis; I10 Essential (primary) hypertension; Z96.612 Presence of left artificial shoulder joint; Z85.118 Personal history of other malignant neoplasm of bronchus and lung; Z87.19 Personal history of other diseases of the digestive system; Z79.82 Long term (current) use of aspirin; Z79.890 Hormone replacement therapy; Z87.891 Personal history of nicotine dependence; Z88.5 Allergy status to narcotic agent; Z88.0 Allergy status to penicillin; Z80.0 Family history of malignant neoplasm of digestive organs; Z82.3 Family history of stroke
CPT/HCPCS: 71046; 71275; 80053; 83880; 84484; 85025; 85027; 85379; 85610; 85730; 87070; 93005; 93306; 93970; 96365; 99285; Q9967

== ENCOUNTER → 2025-06-03 14:46 | Outpatient (REF) | payer MEDICARE, OTHER, SELFPAY | LOC: RAD 14:46 | PROVIDERS: ATTENDING PHYSICIAN Nurse Practitioner Family; FAMILY PHYSICIAN Family Medicine | DX: Z86.718 Personal history of other venous thrombosis and embolism (principal); I26.99 Other pulmonary embolism without acute cor pulmonale | CPT/HCPCS: 93970 ==